=== PATIENT | female | born 1965 | race African-American/Black ===

== ENCOUNTER 2020-05-15 21:22 | Emergency (ER) | payer OTHER ==
[~2020-05-15] VITALS: Ht 170.2 cm; Wt 111.1 kg
[2020-05-15 21:51] LABS: ABSOLUTE NEUTROPHILS 3.3 thou/uL (1.4-8.2); BASOPHILS 1.1 % (0.0-2.0); EOSINOPHILS 2.7 % (0.0-3.0); LYMPHOCYTES 27.9 % (24.0-44.0); MCH 33.2 pg (26.0-34.0); MCHC 34.1 g/dL (28.0-37.0); MCV 97.3 fL (80.0-100.0); PLATELET COUNT 270 thou/uL (150-400); POLYS 57.3 % (36.0-66.0); RBC 4.21 mil/uL (4.20-5.00); RDW 13.6 % (10.5-14.5); WBC 5.8 thou/uL (4.0-11.0)
[2020-05-15] MEDS ORDERED: NAPROSYN500 MG PO (22:13)
[2020-05-15] MEDS ORDERED: ONDANSETRON ODT8 MG PO (22:13)
[2020-05-15] MEDS ORDERED: CLINDAMYCIN HC300 MG PO (22:13)
[2020-05-15 23:02] LABS: ALBUMIN 3.4 g/dL (3.4-5.0); ANION GAP 13 mmol/L (7-16); BUN 16 mg/dL (7-18); CALCIUM 9.3 mg/dL (8.5-10.1); CHLORIDE 102 mmol/L (98-107); CO2 26 mmol/L (21-32); GLUCOSE 98 mg/dL (74-106); LIPASE 93 U/L (73-393); MAGNESIUM 1.9 mg/dL (1.8-2.4); POTASSIUM 3.9 mmol/L (3.5-5.1); SGOT 20 U/L (15-37); SGPT 31 U/L (30-65); SODIUM 141 mmol/L (136-145); TOTAL BILIRUBIN 0.3 mg/dL (0.2-1.0); TOTAL PROTEIN 7.3 g/dL (6.4-8.2); TROPONIN-I <0.06 ng/mL (<0.06)
[2020-05-15 23:38] LABS: URINE BILIRUBIN NEGATIVE (Negative); URINE BLOOD NEGATIVE (Negative); URINE CLARITY CLEAR; URINE COLOR YELLOW; URINE GLUCOSE-RANDOM* NEGATIVE (Negative); URINE KETONES NEGATIVE (Negative); URINE LEUKOCYTES-REFLEX NEGATIVE (Negative); URINE NITRITE-REFLEX NEGATIVE (Negative); URINE PROTEIN (DIPSTICK) NEGATIVE (Negative); URINE SPECIFIC GRAVITY 1.015 (1.005-1.035); URINE UROBILINOGEN 0.2 E.U./dl (0.2-1.0)
[2020-05-15 23:41] VITALS: BP 114/68
[2020-05-15 23:50] LABS: AMP/METHAMP Negative (Negative); BARBITURATES Negative (Negative); BENZODIAZEPINES Negative (Negative); COCAINE Negative (Negative); METHADONE Negative (Negative); OPIATES Negative (Negative); PCP Negative (Negative)
--- NOTE | 2020-05-18 08:36 | EKG ---
[facility] [place] [address] ELECTROCARDIOGRAM REPORT Name: NAKITA LUNSFORD Room #: DEP [facility]#: [id number] Admission: 05/15/20 Attend Phys: Discharge: 05/15/20 Date of : 65 Report #: [id number] THIS REPORT FOR: cc: JOSE CAMPO MD Physician not on staff Ilan Chi MD [facility] ~ THIS REPORT FOR: //name// [facility] ED Test Date: 2020-05-15 Test Time: 21:27:52 Pat Name: NAKITA LUNSFORD Department: Room: Gender: F Evidence Technician: [facility] : 1965 Requested By: Jh Pena Order Number: [id number] MD: Ilan Chi Measurements Intervals [place] Rate: 91 P: 49 [place]: 152 QRS: -19 QRSD: 105 T: 3 QT: 366 QTc: 451 Interpretive Statements Sinus rhythm RSR' in V1 or V2, probably normal variant Borderline T abnormalities, anterior leads No previous ECG available for comparison Electronically Signed On 05-18-2020 8:31:34 CDT by Ilan Chi [email or web address] <ELECTRONICALLY SIGNED> By: Ilan Chi MD, [facility] 05/18/2031 26 26 Ilan Chi MD, [facility] /EPI
== END 2020-05-15 23:44 | disposition home or self-care (01) ==
LOC: ER 21:22
PROVIDERS: Emergency Medicine
DX: R07.89 Other chest pain (principal); R11.2 Nausea with vomiting, unspecified; R42 Dizziness and giddiness; K04.7 Periapical abscess without sinus; E78.00 Pure hypercholesterolemia, unspecified; I10 Essential (primary) hypertension; K21.9 Gastro-esophageal reflux disease without esophagitis; J45.909 Unspecified asthma, uncomplicated

== ENCOUNTER 2020-05-19 18:09 | Emergency (ER) | payer OTHER ==
[~2020-05-19] VITALS: Ht 170.2 cm; Wt 111.1 kg
[~2020-05-19 18:09] MED LIST: CLINDAMYCIN HC300 MG PO; NAPROSYN500 MG PO; ONDANSETRON ODT8 MG PO
[2020-05-19] MEDS ORDERED: PEPCID40 MG PO (20:01)
[2020-05-19] MEDS ORDERED: NEURONTIN 300M300 M2 PO (20:01)
[2020-05-19] MEDS ORDERED: TIZANIDINE HCL4 M1 PO (20:01)
[2020-05-19] MEDS ORDERED: TRIAMTERENE/HCT1 CA1 PO (20:01)
[2020-05-19] MEDS ORDERED: MECLIZINE HCL25 M1 PO (20:02)
[2020-05-19] MEDS ORDERED: ASA81BEC PO (20:02)
[2020-05-19] MEDS ORDERED: TOPROL XL25 MG PO (20:02)
[2020-05-19] MEDS ORDERED: MELOXICAM15 MG PO (20:02)
[2020-05-19] MEDS ORDERED: GLUCOPHAGE500 MG PO (20:03)
[2020-05-19 20:32] VITALS: BP 129/88
== END 2020-05-19 20:35 | disposition left against medical advice (07) ==
LOC: ER 18:09
DX: R11.0 Nausea (principal); R42 Dizziness and giddiness; R00.0 Tachycardia, unspecified; F41.9 Anxiety disorder, unspecified; E78.00 Pure hypercholesterolemia, unspecified; I10 Essential (primary) hypertension; K21.9 Gastro-esophageal reflux disease without esophagitis; J45.909 Unspecified asthma, uncomplicated; F32.9 Major depressive disorder, single episode, unspecified; Z79.2 Long term (current) use of antibiotics; Z79.899 Other long term (current) drug therapy; Z88.0 Allergy status to penicillin

== ENCOUNTER 2021-04-23 06:40 | Inpatient (IN) | payer OTHER ==
[2021-04-23] VITALS (7 sets, daily range): BP systolic 100–133; BP diastolic 65–86
[~2021-04-23] VITALS: Ht 170.2 cm; Wt 128.7 kg
--- NOTE | ~2021-04-23 | EMS ---
[address] [address] EMS Patient Care Report Name: NAKITA LUNSFORD Room #: 349-I ADM IN M.R.#: [id number] Admission: 04/23/21 Attend Phys: Lina Willams MD Discharge: Date of : 65 Report #: [id number] THIS REPORT FOR: //name// Report Transmitted: 04/26/2021 12:06 EMS Care Summary [place], [place]/[facility] Incident [id number] @ 04/23/2021 06:12 Incident Location [address] [place] [address] Patient NAKITA LUNSFORD Female, 55 Years 1965 Patient Address [address] [place] [address] Patient History Asthma, Patient Allergies Penicillin allergy,Bactrim, Chief Complaint SHORT OF BREATH Disposition Transported No Lights/[place] Dispatch Reason Breathing Problem Transported To [facility] Narrative ARRIVED TO FIND PT SITTING ON A COUCH. PT REPORTS TESTING COVID POSITIVE ON MONDAY, NOW FEELING SHORT OF BREATH, AND WEAK. PT ASSISTED TO COT, SECURED WITH STRAPS X2 LOADED WITHOUT INCIDENT. ALS ASSESSMENT VITALS OBTAINED. PT PLACED ON O2. ENROUTE, PT CONDITION UNCHANGED. [address] [address] EMS Patient Care Report Name: NAKITA LUNSFORD Room #: 349-I ADM IN Manuel.#: [id number] Admission: 04/23/21 Attend Phys: Lina Willams MD Discharge: Date of : 65 Report #: [id number] ARRIVED . PT TAKEN INSIDE ON COT TO ER 10. PT STEPS TO BED. REPORT GIVEN TO NURSE PT CARE TRANSFERRED. Initial Vitals @06:26P: 83,R: 30,Pain: 0/10,GCS: 15,SpO2: 90, @06:34P: 91,R: 30,BP: 112/78,Pain: 0/10,GCS: 15,CO: 3,SpO2: 93,Revised Trauma: 11, Assessments @06:20MENTAL:Person Oriented,Event Oriented,Time Oriented,Place Oriented,SKIN:Pale,HEENT:Head/Face: No Abnormalities,Neck/Airway: No Abnormalities,LUNG SOUNDS:General: No Abnormalities,Left Upper: No Abnormalities,Right Upper: No Abnormalities,Left Lower: No Abnormalities,Right Lower: No Abnormalities,ABDOMEN:General: No Abnormalities,Left Upper: No Abnormalities,Right Upper: No Abnormalities,Left Lower: No Abnormalities,Right Lower: No Abnormalities,PELVIS//GI:No Abnormalities,EXTREMITIES:Left Arm: No Abnormalities,Right Arm: No Abnormalities,Left Leg: No Abnormalities,Right Leg: No Abnormalities,PULSE:Radial: Absent,NEURO:No Abnormalities, Impression COVID-19 - Confirmed by testing Procedures @06:20ALS AssessmentResponse: UnchangedSucceeded@06:25Oxygen FlowRate: 6 Device: Nasal Cannula (NC) Response: ImprovedSucceeded Timeline 06:11,Call Received 06:11,Dispatch Notified 06:12,Dispatched 06:13,En Route 06:19,On Scene 06:20,At Patient 06:20,ALS Assessment,Response: UnchangedSucceeded, 06:25,Oxygen FlowRate: 6 Device: Nasal Cannula (NC) Response: ImprovedSucceeded, 06:26,BP: / M,PULSE: 83,RR: 30 R,SPO2: 90 Ox,ETCO2: ,BG: ,PAIN: 0,GCS: 15, 06:26,Depart Scene 06:34,BP: 112/78 M,PULSE: 91,RR: 30 R,SPO2: 93 Ox,ETCO2: ,BG: ,PAIN: 0,GCS: 15, 06:38,At Destination 06:47,Call Closed Disclaimer v1.1 Copyright 2020 [employer] This EMS Care Summary contains data elements from the applicable legal record (which may be displayed differently). It is designed to provide pertinent [facility] [address] [place] [address] EMS Patient Care Report Name: NAKITA LUNSFORD Room #: 349-I [facility]#: [id number] Admission: 04/23/21 Attend Phys: Lina Willams MD Discharge: Date of : 65 Report #: [id number] information for the following purposes: continuity of care, clinical quality, and state data reporting. The complete legal record is available to ED staff and administrators of the receiving hospital in ES's Patient Tracker. All data is provided "as is."
[~2021-04-23 06:40] MED LIST changes: +ASA81BEC PO; +GLUCOPHAGE500 MG PO; +MECLIZINE HCL25 M1 PO; +MELOXICAM15 MG PO; +NEURONTIN 300M300 M2 PO; +PEPCID40 MG PO; +TIZANIDINE HCL4 M1 PO; +TOPROL XL25 MG PO; +TRIAMTERENE/HCT1 CA1 PO
--- NOTE | 2021-04-23 06:52 | NUR ---
REPORTS SHE WILL GET VACCINATED WHEN SHE GETS BETTER
[2021-04-23 07:32] LABS: ABSOLUTE NEUTROPHILS 5.8 thou/uL (1.4-8.2); BASOPHILS 0.2 % (0.0-2.0); HEMOGLOBIN 14.8 gm/dL (12.0-15.0); LYMPHOCYTES 10.9 % (24.0-44.0); MCHC 33.6 g/dL (28.0-37.0); MCV 98.1 fL (80.0-100.0); MONOCYTES 4.9 % (1.0-8.0); PLATELET COUNT 185 thou/uL (150-400); RBC 4.49 mil/uL (4.20-5.00); RDW 13.6 % (10.5-14.5); WBC 6.9 thou/uL (4.0-11.0)
[2021-04-23 07:35] LABS: ANION GAP 11 mmol/L (7-16); BUN 10 mg/dL (7-18); CALCIUM 8.6 mg/dL (8.5-10.1); CHLORIDE 100 mmol/L (98-107); CO2 26 mmol/L (21-32); CREATININE 1.1 mg/dL (0.6-1.0); GLUCOSE 150 mg/dL (74-106); POTASSIUM 3.3 mmol/L (3.5-5.1); SODIUM 137 mmol/L (136-145)
[2021-04-23 07:44] LABS: TROPONIN-I <0.06 ng/mL (<0.06)
--- NOTE | 2021-04-23 09:05 | EKG ---
[address] [place] [address] ELECTROCARDIOGRAM REPORT Name: NAKITA LUNSFORD Room #: 170-10 ADM IN M.R.#: [id number] Admission: 04/23/21 Attend Phys: Lina Willams MD Discharge: Date of : 65 Report #: [id number] [facility] ED Test Date: 2021-04-23 Test Time: 07:25:27 Pat Name: NAKITA LUNSFORD Department: Room: [facility] Gender: F Card Grinder Helper: [place] : 1965 Requested By: Giselle Mendez Order Number: [id number] MD: Ilan Chi Measurements Intervals [place] Rate: 82 P: 54 [place]: 147 QRS: -32 QRSD: 99 T: 7 QT: 344 QTc: 402 Interpretive Statements Sinus rhythm Probable left atrial enlargement RSR' in V1 or V2, probably normal variant Inferior infarct, old Compared to ECG 05/15/2020 21:27:52 T-wave abnormality no longer present Electronically Signed On 04-23-2021 9:05:21 CDT by Ilan Chi [email or web address] <ELECTRONICALLY SIGNED> By: Ilan Chi MD, [facility] 04/23/21904 4 4 Ilan Chi MD, [facility] /EPI
[2021-04-23] MEDS ORDERED: HYDROXYZINE HCL25 M2 PO (10:43)
[2021-04-23] MEDS ORDERED: ESTRACE1 MG PO (10:45)
[2021-04-23] MEDS ORDERED: DRIZALMA SPRINK60 MG PO (10:46)
[2021-04-23] MEDS ORDERED: PROVERA2.5 MG PO (10:47)
[2021-04-23] MEDS ORDERED: ABILIFY10 MG PO (10:48)
[2021-04-23] MEDS ORDERED: PROAIR HFA8.5 GM INH (10:49)
[2021-04-23] MEDS ORDERED: ADVAIR 250-501 EACH INH (10:50)
--- NOTE | 2021-04-23 11:12 | NUR ---
ADMISSION NOTE: PT ADMITTED TO ROOM 349. PT A&O X4. STATES SHE HAS PAIN IN THE BILTAREAL KNEES, RATING 9/10, BUT STATES THAT IT IS CHRONIC. PT ALSO STATES SOME CHEST SORENESS FROM COUGHING, MADE WORSE WITH DEEP BREATHING. LONG LINE TEAMSTER PLACED ON PT, SINUS RHYTHM. ON NRB 10L, SATING AT 97%. ADMISSION & ASSESSMENT COMPLETE. SKIN INTACT. UP WITH STAND BY ASSIST TO BSC. PT ORIENTED TO ROOM. MED REC COMPLETED. PT CAME IN WITH BAG FULL OF MEDICATIONS, STATE THE DAUGHTER WILL COME TO GET IT, ALONG WITH HER PURSE. FALL PRECAUTIONS IN PLACE. CALL LIGHT & TABLE WITHIN REACH. PT DENIES ANY NEEDS AT THIS TIME.
[2021-04-24 01:06] LABS: GLYCOHEMOGLOBIN (HGB A1C) 5.8 % (4.8-5.6)
[2021-04-24 03:15] VITALS: BP 106/72
[2021-04-24 04:06] LABS: HIV ANTIBODY Non Reactive (Non Reactive)
--- NOTE | 2021-04-24 05:06 | NUR ---
Received pt. on 8L/HF with O2 sat in the low 90's. Tachypneic ,resp 28/min. At 2353 , RT titrated O2 up to 10L/HF. At 0315 , desatting in the mid 80's,RT notified. Encouraged use of IS. Pt. got up to commode and O2 sat only staying in the low 80's. RT placed her on Optiflow at 45L/80% at 0350. O2 sat in the upper 90's to 100% so RT titrated O2 down to 40L/60% around 0415. Pt. premedicated with tylenol and benadyl IV prior to giving Tocilizumab IV. Pt. stated she actually slept well and that made her feel good because she has not been able to sleep at home. Cont. on enhanced precaution , afebrile. Up with assist to commode to void. Sputum sample sent to lab.
--- NOTE | 2021-04-24 05:45 | NUR ---
O2 sat of 88-90% on Optiflow 40L / 60%. RT put her on BIPAP around 0530 ( 12/ rate of 12 , 75% FIO2 ). Maintaining O2 sat in the upper 90's on current BIPAP settings. notified of increasing O2 requirement.
[2021-04-24 06:07] LABS: ABSOLUTE NEUTROPHILS 4.1 thou/uL (1.4-8.2); BASOPHILS 0.3 % (0.0-2.0); EOSINOPHILS 0.1 % (0.0-3.0); HEMATOCRIT 40.3 % (37.0-47.0); HEMOGLOBIN 13.5 gm/dL (12.0-15.0); LYMPHOCYTES 9.9 % (24.0-44.0); MCH 32.8 pg (26.0-34.0); MCHC 33.6 g/dL (28.0-37.0); MCV 97.6 fL (80.0-100.0); MONOCYTES 10.2 % (1.0-8.0); PLATELET COUNT 197 thou/uL (150-400); POLYS 79.5 % (36.0-66.0); RBC 4.13 mil/uL (4.20-5.00); RDW 13.9 % (10.5-14.5); WBC 5.1 thou/uL (4.0-11.0)
[2021-04-24 06:28] LABS: INR 1.02; PROTIME 11.1 Seconds (10.5-12.1)
[2021-04-24 06:33] LABS: ALBUMIN 2.4 g/dL (3.4-5.0); CREATININE 0.9 mg/dL (0.6-1.0); PHOSPHORUS 3.6 mg/dL (2.5-4.9); TOTAL BILIRUBIN 0.3 mg/dL (0.2-1.0); TOTAL PROTEIN 6.9 g/dL (6.4-8.2)
[2021-04-24 06:44] LABS: POTASSIUM 4.8 mmol/L (3.5-5.1)
[2021-04-24 07:21] VITALS: BP 114/77
--- NOTE | 2021-04-24 07:23 | NUR ---
Daughter Odyssey updated on pt. condition.
[2021-04-24 11:21] VITALS: BP 122/63
[2021-04-24 15:12] VITALS: BP 123/78
--- NOTE | 2021-04-24 17:47 | HC ---
[facility] [place] [address] CONSULTATION Name: NAKITA LUNSFORD Room #: 349-I ADM IN M.R.#: [id number] Admission: 04/23/21 Attend Phys: Lina Willams MD Discharge: Date of : 65 Report #: [id number] THIS REPORT FOR: cc: AGAPITO LUCAS - Family physician unknown Jh Johnson MD ~ DATE OF SERVICE: 04/23/2021 INFECTIOUS DISEASE CONSULTATION REASON FOR CONSULTATION: I was asked to evaluate concerning COVID-19 pneumonia. HISTORY OF PRESENT ILLNESS: The patient is a 55-year-old, underlying history of asthma and morbid obesity who presents with a 1-week history of increased cough, congestion, myalgias, arthralgias, anorexia, nausea, diarrhea, low-grade fever, chills, progressive shortness of breath, light-colored sputum production without pleuritic chest pain. She works as a teacher in [place], [place]. She is unvaccinated for COVID-19. Brought into the Emergency Room, now on 8 liters of oxygen per nasal cannula. She uses inhalers for her asthma and was on prednisone about 6 months ago. REVIEW OF SYSTEMS: Fourteen-point review of system was negative other than what has been described above. ALLERGIES: PENICILLIN, BACTRIM WITH RASH. MEDICATIONS: As noted on her MAR, which were reviewed. PAST MEDICAL HISTORY: Hyperlipidemia, hypertension, gastroesophageal reflux, asthma, depression, peripheral neuropathy, morbid obesity. FAMILY HISTORY: Cancer. SOCIAL HISTORY: Nonsmoker, no significant alcohol intake. No HIV or tuberculosis exposure. PHYSICAL EXAMINATION: VITAL SIGNS: The patient had a temperature of 100.5 degrees, hemodynamically stable. GENERAL: Alert and cooperative, sitting up in bed, in no distress. She was able to talk on the phone. She had oxygen on per nasal cannula. She was morbidly obese. No palpable adenopathy. SKIN: Without rash or decubitus. HEENT: Eyes without scleral icterus. Mouth without mucositis. NECK: Supple. LUNGS: Basilar crackles. [facility] [address] [place] [address] CONSULTATION Name: NAKITA LUNSFORD Room #: 349-I [facility] IN M.R.#: [id number] Admission: 04/23/21 Attend Phys: Lina Willams MD Discharge: Date of : 65 Report #: [id number] HEART: Regular, without murmur, gallop or rub. ABDOMEN: Soft and nontender with no hepatosplenomegaly or mass appreciated. GENITAL AND RECTAL: Not performed. EXTREMITIES: Without clubbing, cyanosis or edema. NEUROLOGIC: Cranial nerves intact. Strength in the upper and lower extremities within normal limits. PSYCHIATRIC: Mood without anxiety or depression. LABORATORY DATA: Reviewed. Microbiology reviewed. Chest x-ray reviewed. IMPRESSION: 1. A 55-year-old with COVID-19 pneumonia and respiratory failure. 2. Morbid obesity. 3. Underlying asthma. 4. DRUG ALLERGIES TO PENICILLIN AND SULFA. 5. Hypertension. RECOMMENDATIONS: We will continue combination antiviral therapy, corticosteroids and add Actemra. This was discussed with the patient regarding treatment approach. She agreed with the plan. We will continue antibiotics pending culture results. We will obtain serial laboratory studies and chest x-ray. The patient will be treated on the COVID isolation unit. <ELECTRONICALLY SIGNED> By: Jh Johnson MD 04/24/21 1747 [id number] 0425 Jh Johnson MD /nt
--- NOTE | 2021-04-24 18:05 | NUR ---
assumed care of pt at 0700. pt aox4 mod resp distress. on bipap overnight. tolerating optiflow during day - 45L/90%. complains of headache and occasional nausea. good relief with meds. pt doing well turning self in bed - noticable improvement in spo2. calls out appropriately. up to bsc w/ assist. family calling several times, checking on patient status. overall seems to be showing slight improvement. wcm.
[2021-04-24 21:08] VITALS: BP 132/83
--- NOTE | 2021-04-25 00:04 | NUR ---
PT ALERT AND ORIENTED X4. VSS AFEBRILE. SATS DECREASED INTO 80'S WHEN PT CHANGED POITION FROM RIGHT SIDE TO SITTING SEMIFOWLERS. RT NOTIFIED. O2 INCREASEED TO 96% AND 50 LF ON OPTIFLO. PT IS BREATHING IN 30S PRESENTLY. SHE DOES NOT WANT THE BIPAP PRESENTLY. DR FISHER WAS NOTIFIED PER RT OF CHANGE IN O2 NEED. SHE ALSO HAS THE NRB MASK ON. HER SATS ARE 95-96% PRESENTLY. WILL CONTINUE TO MONITOR PT FOR CHANGES. BED DOWN. CALL LIGHT IN REACH.
[2021-04-25 00:12] VITALS: BP 156/83
[2021-04-25 04:55] VITALS: BP 112/77
--- NOTE | 2021-04-25 05:12 | NUR ---
PT CHANGED TO BIPAP PER RT. FIO2 85%. SATS 95-96% ON BIPAP. BS SOUND DIMINISHED WITH FINE CRACKLES NOTED. WILL CONTINUE TO MONITOR PT FOR CHANGES.
[2021-04-25 06:13] LABS: ABSOLUTE NEUTROPHILS 7.2 thou/uL (1.4-8.2); BASOPHILS 0.4 % (0.0-2.0); HEMATOCRIT 44.7 % (37.0-47.0); HEMOGLOBIN 14.9 gm/dL (12.0-15.0); LYMPHOCYTES 7.5 % (24.0-44.0); MCH 33.1 pg (26.0-34.0); MCHC 33.2 g/dL (28.0-37.0); MCV 99.5 fL (80.0-100.0); MONOCYTES 8.9 % (1.0-8.0); PLATELET COUNT 203 thou/uL (150-400); POLYS 83.2 % (36.0-66.0); RDW 13.8 % (10.5-14.5); WBC 8.6 thou/uL (4.0-11.0)
[2021-04-25 07:50] VITALS: BP 120/76
[2021-04-25 11:53] VITALS: BP 112/64
[2021-04-25 12:38] LABS: ANION GAP 7 mmol/L (7-16); BUN 15 mg/dL (7-18); CALCIUM 8.5 mg/dL (8.5-10.1); CHLORIDE 103 mmol/L (98-107); CO2 26 mmol/L (21-32); CREATININE 0.9 mg/dL (0.6-1.0); GLUCOSE 135 mg/dL (74-106); POTASSIUM 5.2 mmol/L (3.5-5.1); SODIUM 136 mmol/L (136-145)
[2021-04-25 12:45] LABS: ALBUMIN 2.5 g/dL (3.4-5.0); DIRECT BILIRUBIN < 0.1 mg/dL (<0.1-0.2); SGOT 98 U/L (15-37); SGPT 80 U/L (14-59); TOTAL BILIRUBIN 0.3 mg/dL (0.2-1.0); TOTAL PROTEIN 6.9 g/dL (6.4-8.2)
--- NOTE | 2021-04-25 13:23 | NUR ---
PT'S DAUGHTER (JUANITA ALLEN) REQUESTED THATPT BE A CONFIDENTIAL PATIENT. SHE STATES TO MAY PEOPLE ARE CALLING FOR INFORMATION ABOUT HER MOTHER AND IT'S BECOMING A PROBLE. SEND MESSAGE TO [employer] REQUESTING PT BE CONFIDENTIAL.
[2021-04-25 15:07] VITALS: BP 124/68
--- NOTE | 2021-04-25 15:26 | NUR ---
PT ABLE TO TOLEARATE AIRVO NASAL CANNULA TO EAT LUNCH NOW BACK ON BIPAP.
[2021-04-25 19:30] VITALS: BP 130/82
--- NOTE | 2021-04-25 21:52 | NUR ---
PT ALERT AND ORIENTED X4. VSS AFEBRILE. RR 30% SATS 93% ON 85% FIO2 BIPAP ON. PT STATED SHE IS FELLING BETTER THAN YESTERDAY. ABX HUNG ORDERED. NO C/O PAIN OR SOA PESENTLY. WILL CONTINUE TO MONITOR PT FOR CHANGES.
--- NOTE | 2021-04-26 01:19 | NUR ---
PT IS RESTING QUIETLY PRESENTLY ON BIPAP.
[2021-04-26 04:30] VITALS: BP 134/87
--- NOTE | 2021-04-26 05:52 | NUR ---
PT PROGRESSING SLOWLY TOWARDS D/C GOALS. VSS SATS 98% ON BIPAP 85% TONIGHT. MIRALAX GIVEN FOR CONSTIPATION. NO AMMY PAIN. NO S/S DISTRESS PRESENTLY.
[2021-04-26 07:12] VITALS: BP 139/87
--- NOTE | 2021-04-26 08:41 | NUR ---
Assess due to high BMI 56.6/extreme class III obesity. Admit with COVID+ pneumonia. Day 3 hospitalization. BG slightly elevated with steroids 123-154, A1C wnl 5.8. Appetite fair, average about 60% of meals. Requires bipap/optiflow. Low nutrition risk at this time
[2021-04-26 11:13] VITALS: BP 123/73
[2021-04-26 15:41] VITALS: BP 152/98
--- NOTE | 2021-04-26 15:43 | NUR ---
INITIAL ASSESSMENT: Received consult. ELZA reviewed chart and spoke with nursing and attending physician. Pt was admitted from home due to COVID pneumonia. Pt placed in Enhanced Isolation. Pt has not received the COVID vaccine. Pt is afebrile and requiring bipap/optiflow support. Pt is on IV abx and IV steroids. Pt has been started on Remdesivir. ELZA left voice message for pt's dtr, Odyssey, to obtain info for CM assessment and assist with discharge planning. Pt is listed as a confidential pt. ELZA is following to assist as needed with discharge planning.
[2021-04-26 16:09] LABS: ALBUMIN 2.7 g/dL (3.4-5.0); ANION GAP 5 mmol/L (7-16); BUN 17 mg/dL (7-18); CALCIUM 7.9 mg/dL (8.5-10.1); CHLORIDE 107 mmol/L (98-107); CO2 29 mmol/L (21-32); CREATININE 0.7 mg/dL (0.6-1.0); DIRECT BILIRUBIN 0.1 mg/dL (<0.1-0.2); GLUCOSE 120 mg/dL (74-106); POTASSIUM 4.7 mmol/L (3.5-5.1); SGOT 80 U/L (15-37); SGPT 114 U/L (30-65); SODIUM 141 mmol/L (136-145); TOTAL BILIRUBIN 0.3 mg/dL (0.2-1.0); TOTAL PROTEIN 6.5 g/dL (6.4-8.2)
[2021-04-26 16:10] LABS: D-DIMER 0.39 ug/mLFEU (0.19-0.50); INR 1.02; PROTIME 11.1 Seconds (10.5-12.1)
[2021-04-26 18:14] LABS: ABSOLUTE NEUTROPHILS 7.7 thou/uL (1.4-8.2); BASOPHILS 0.1 % (0.0-2.0); HEMOGLOBIN 13.1 gm/dL (12.0-15.0); LYMPHOCYTES 5.7 % (24.0-44.0); MCH 32.9 pg (26.0-34.0); MCHC 33.7 g/dL (28.0-37.0); MCV 97.6 fL (80.0-100.0); MONOCYTES 14.3 % (1.0-8.0); POLYS 79.9 % (36.0-66.0); RDW 13.1 % (10.5-14.5); WBC 9.6 thou/uL (4.0-11.0)
[2021-04-26 18:16] LABS: PLATELET COUNT 314 thou/uL (150-400)
--- NOTE | 2021-04-26 18:34 | NUR ---
VAT CONSULTED FOR MIDLINE. PT'S LABS,MEDS,HX,REVIEWED. DISCUSSED BENEFITS AND RISK OF MIDLINE WITH PT, VERBALIZED UNDERSTANDING AND GAVE VERBAL CONSENT. JOSE RAFAEL BRACHIAL WAS WIDELY PATENT WITH USG.4FR ML TRIMMED TO 15CM INSERTED TO 2CM EXTERNAL WITH BRISK BR. PT TOLERATED WELL. ML RELEASED FOR IMMEDIATE USE PER PROTOCOL TO NICOLE HARLEY
[2021-04-26 21:52] VITALS: BP 139/86
--- NOTE | 2021-04-26 23:38 | NUR ---
PT ALERT AND ORIENTED X4. VSS AFEBRILE. NO C/O PAIN. NO SOA NOTED WITH BIPAP ON. IVFS INFUSING WITHOUT DIFFICULTY R ML. BED DOWN. CALL LIGHT IN REACH. WILL CONTINUE TO MONITOR PT FOR CHANGES.
[2021-04-27 04:46] VITALS: BP 148/87
--- NOTE | 2021-04-27 05:16 | NUR ---
PT PROGRESSING TOWARDS D/C GOALS . VSS AFEBRILE. SATS WNL WITH CURRENT BIPAP SETTIGS. NO C/O PAIN OR S/S DISTRESS.
[2021-04-27 05:58] LABS: ABSOLUTE NEUTROPHILS 7.6 thou/uL (1.4-8.2); BASOPHILS 0.2 % (0.0-2.0); HEMATOCRIT 40.3 % (37.0-47.0); HEMOGLOBIN 13.5 gm/dL (12.0-15.0); MCH 32.7 pg (26.0-34.0); MCHC 33.6 g/dL (28.0-37.0); MCV 97.5 fL (80.0-100.0); MONOCYTES 9.1 % (1.0-8.0); PLATELET COUNT 321 thou/uL (150-400); POLYS 84.7 % (36.0-66.0); RBC 4.14 mil/uL (4.20-5.00); RDW 13.1 % (10.5-14.5)
[2021-04-27 06:00] LABS: ALBUMIN 2.5 g/dL (3.4-5.0); CALCIUM 7.6 mg/dL (8.5-10.1); CREATININE 0.9 mg/dL (0.6-1.0); MAGNESIUM 2.4 mg/dL (1.8-2.4); PHOSPHORUS 2.5 mg/dL (2.5-4.9); POTASSIUM 4.6 mmol/L (3.5-5.1); TOTAL BILIRUBIN 0.3 mg/dL (0.2-1.0); TOTAL PROTEIN 6.3 g/dL (6.4-8.2)
[2021-04-27 07:49] VITALS: BP 144/79
[2021-04-27 11:21] VITALS: BP 134/79
--- NOTE | 2021-04-27 12:09 | NUR ---
ELZA reviewed chart and spoke with nursing and attending physician. Pt remains in Enhanced Isolation due to COVID. Pt is afebrile and requiring optiflow/bipap support. Pt is on IV steroids and Remdesivir. ELZA spoke with pt's dtr, Ja, via phone. Introduced role of ELZA. Pt lives at home with Ja, who has also tested positive for COVID. Prior to admission, pt was independent with ADLs. Pt does have a cane. Pt with hx of asthma and has an inhaler and nebulizer at home. There are 4-5 steps from the ground level up to the second level fo their home, where the main bathroom is located. Pt's PCP is at the [facility]. No hx of HH or post-acute placement. PT/OT to be ordered when pt is able to participate. ELZA is following to assist as needed with discharge planning.
[2021-04-27 16:50] VITALS: BP 142/87
--- NOTE | 2021-04-28 05:27 | NUR ---
FATIGUE AND WEAKNESS STILL COMPLAINTS FROM PT. 02 SATURATIONS HOVER FROM MID 80'S-LOW 90'S, AND PT STATES SHE DOES NOT WANT TO GO ON BIPAP AGAIN. CONVINCED HER TO USE REBREATHER WITH OPTIFLOW TO GET SATURATIONS UP. SPOKE WITH RT REGARDING SATURATIONS. POC WITH IVF. PT UP TO BSC. REDRESSED MIDLINE PT REQUESTED IT DUE TO BLOOD UNDER TRANSPARENT.
[2021-04-28 06:03] VITALS: BP 144/83
[2021-04-28 07:05] VITALS: BP 145/80
--- NOTE | 2021-04-28 14:30 | NUR ---
SW reviewed chart and spoke with nursing and attending physician. Pt remains in Enhanced Isolation due to COVID. Pt is afebrile and requiring optiflow. Pt is hoping to not having to be placed back on bipap. Pt is on IV steroids and Remdesivir. Therapy evals to be ordered when pt is able to participate. SW is following to assist as needed with discharge planning.
[2021-04-28 15:05] VITALS: BP 132/77
[2021-04-28 19:20] VITALS: BP 147/91
--- NOTE | 2021-04-28 19:32 | NUR ---
day shift review: pt A&Ox4. states she is feeling better, has concerns for her daughter, also COVID+. this rn encouraged pt to rest when able during the day. pt has tendency to mouth breathe, causing slight decline in oxygenation saturation. pt easily recovers when closing mouth. no other complaints or concerns by end of shift.
[2021-04-29 03:45] VITALS: BP 148/88
[2021-04-29 05:38] LABS: ALBUMIN 2.5 g/dL (3.4-5.0); CALCIUM 7.9 mg/dL (8.5-10.1); CREATININE 0.9 mg/dL (0.6-1.0); DIRECT BILIRUBIN 0.1 mg/dL (<0.1-0.2); POTASSIUM 4.7 mmol/L (3.5-5.1); TOTAL BILIRUBIN 0.4 mg/dL (0.2-1.0)
[2021-04-29 07:19] VITALS: BP 123/74
--- NOTE | 2021-04-29 07:43 | NUR ---
PT 02 SATS UP AND DOWN IN THE MID 80'S. PT WAS PLACED ON BIPAP FOR ABOUT 3 HOURS THEN WANTED TO COME OF AND GO BACK TO THE OPTIFLOW. PT STILL WEAK AND FEELING FATIGUED. VSS STABLE OVERNIGHT WITHOUT ANY FEVER.
--- NOTE | 2021-04-29 14:28 | NUR ---
ELZA reviewed chart and spoke with nursing and attending physician. Pt remains in Enhanced Isolation due to COVID. Pt is afebrile and requiring optiflow. Pt was placed on bipap overnight for about 3 hours. Pt is on IV steroids and Remdesivir. ELZA spoke with pt's dtr, Ja, via phone to provide update. Ja states that she did speak with a physician earlier today for an update. Ja also has COVID and is recovering at home. ELZA explained that therapy evals will be ordered when pt is able to participate. Pt's dtr verbalized understanding. Pt's dtr has SW and 3W nurses station contact info. ELZA is following to assist as needed with discharge planning.
[2021-04-29 16:15] VITALS: BP 158/83
--- NOTE | 2021-04-29 17:26 | NUR ---
PT C/O OF SOME CHEST PAIN THIS EVENING. OBTAIN ORDER FOR GI COCKTAIL AND GAVE ZOFRAN WHICH RELIEVED CHEST DISCOMFORT. PT REMAINS ON HIFLO OXYGEN AND BIPAP. WILL CONTINUE TO ASSESS.
[2021-04-29 20:04] VITALS: BP 127/82
[2021-04-30 04:56] VITALS: BP 136/79
[2021-04-30 05:47] LABS: ABSOLUTE NEUTROPHILS 9.5 thou/uL (1.4-8.2); BASOPHILS 0.2 % (0.0-2.0); HEMATOCRIT 40.9 % (37.0-47.0); HEMOGLOBIN 13.9 gm/dL (12.0-15.0); LYMPHOCYTES 5.2 % (24.0-44.0); MCHC 33.9 g/dL (28.0-37.0); MCV 97.3 fL (80.0-100.0); MONOCYTES 6.9 % (1.0-8.0); PLATELET COUNT 326 thou/uL (150-400); POLYS 87.7 % (36.0-66.0); RDW 13.3 % (10.5-14.5); WBC 10.8 thou/uL (4.0-11.0)
[2021-04-30 06:25] LABS: ALBUMIN 2.5 g/dL (3.4-5.0); CALCIUM 7.8 mg/dL (8.5-10.1); CREATININE 0.9 mg/dL (0.6-1.0); DIRECT BILIRUBIN 0.1 mg/dL (<0.1-0.2); POTASSIUM 4.5 mmol/L (3.5-5.1); TOTAL BILIRUBIN 0.5 mg/dL (0.2-1.0); TOTAL PROTEIN 5.9 g/dL (6.4-8.2)
[2021-04-30 07:13] VITALS: BP 139/90
--- NOTE | 2021-04-30 07:35 | NUR ---
KEEPING OXYGEN SATURATION UP WAS A PISANO. PT FINALLY AGREED TO GO ON BIPAP AT 0400 DUE TO SATS SHOWING LOW 80'S. PT HAS GOOD URINE OUTPUT. PT ATTEMPTED TO PRONE FOR A SHORT TIME BUT RIPPED THE OPTIFLOW HOSE IN HALF. REPLACED WITH NEW CANNULA. TYLENOL GIVEN FOR HEADACHE X2. ISOLATION PRECAUTIONS IN PLACE.
[2021-04-30 09:26] LABS: T-SPOT.TB Negative
[2021-04-30 11:35] VITALS: BP 138/76
--- NOTE | 2021-04-30 15:06 | NUR ---
SW reviewed chart and spoke with nursing and attending physician. Pt remains in Enhanced Isolation due to COVID. Pt is afebrile and requiring optiflow and bipap support. Pt is on IV steroids and Remdesivir. Pt may need to transfer to ICU. No weekend discharge anticipated. ELZA is following to assist as needed with discharge planning.
[2021-04-30 19:10] VITALS: BP 148/90
--- NOTE | 2021-04-30 19:34 | NUR ---
RN ASSUMED PT'S CARE AT 0700-1900PM, PT IS A&OX4, PT IS CONTININING TO TREAT COVID MEDICATIONS , PT IS CONTINUING BIPAP WITH O2 100% TO KEEP O2SAT AT 92-100%, PT 'S O2SAT WILL REDUCE <90% WHEN SHE IS EATING , PT DENIES PAIN AT DAY SHIFT, RN HAS REPORTED TO NEXT SHIFT TO KEEP EYE ON PT.
[2021-05-01] VITALS (157 sets, daily range): BP systolic 78–217; BP diastolic 40–150
--- NOTE | 2021-05-01 01:45 | NUR ---
PT ARRIVED TO ICU FROM [facility] IN RESP DISTRESS. ED PHYSICIAN (DR. HOOK) AT BEDSIDE FOR EMERGENT INTUBATION. PT SPOKE WITH FAMILY VIA PERSONAL CELLPHONE TO UPDATE THEM ON HER CURRENT CONDITION AND INTUBATION PLANS. ASSESSMENT COMPLETED. ALL SUPPLIES, MEDICATION AND EQUIPMENT AT BEDSIDE FOR INTUBATION. PT IN ENHANCED PRECAUTIONS FOR COVID ISOLATION.
[2021-05-01 01:52] LABS: BE(vivo) 1.4 mmol/L (-2 to +3); HCO3 26.4 mmol/L (22.0-26.0); PCO2 42.9 mmHg (35.0-45.0); PO2 53.6 mmHg (80.0-100.0); pH 7.407 (7.360-7.450)
--- NOTE | 2021-05-01 02:00 | NUR ---
Received pt. on BIPAP 08/03 rate of 12 with O2 sat in the low 90's. She desats very easily and tachypneic. Around [place] assessment O2 sat in the low 80's then dropping in the 70's. Dr. Hernández notified and updated on pt. condition. Order to transfer to ICU. Nsg front office supervisor and WELDER SETTER RESISTANCE MACHINE notified. RT changed BIPAP setting to AVAP mode per order. O2 sat improved a little with O2 sat in the mid 80's then low 90's but dropped back down in the mid 80's. Pt. tansferred to ICU with all her belongings. Daughter Ja notified.
--- NOTE | 2021-05-01 02:45 | NUR ---
PT INTUBATED AT THIS TIME. PROPOFOL INITIATED AND TITRATED TO MAINTAIN ADEQUATE RASS. OXYGEN SATURATIONS 70S-80S POST INTUBATION. R.T. AT BEDSIDE. ABG ORDERED 1 HOUR POST INTUBATION.
--- NOTE | 2021-05-01 02:45 | NUR ---
RESTRAINTS PLACED PER ORDER AT THIS TIME. CARE PLAN UPDATED.
--- NOTE | 2021-05-01 03:00 | NUR ---
LEWIS CATH PLACED AT THIS TIME
[2021-05-01 04:03] LABS: BE(vivo) -0.3 mmol/L (-2 to +3); HCO3 26.6 mmol/L (22.0-26.0); PCO2 52.6 mmHg (35.0-45.0); PO2 73.2 mmHg (80.0-100.0); pH 7.322 (7.360-7.450); sO2 93.4 % (92.0-98.0)
[2021-05-01 04:40] LABS: ABSOLUTE NEUTROPHILS 10.3 thou/uL (1.4-8.2); BASOPHILS 0.1 % (0.0-2.0); HEMATOCRIT 40.8 % (37.0-47.0); HEMOGLOBIN 13.8 gm/dL (12.0-15.0); LYMPHOCYTES 3.9 % (24.0-44.0); MCH 32.9 pg (26.0-34.0); MCHC 33.8 g/dL (28.0-37.0); MCV 97.4 fL (80.0-100.0); MONOCYTES 4.2 % (1.0-8.0); PLATELET COUNT 321 thou/uL (150-400); POLYS 91.8 % (36.0-66.0); RBC 4.19 mil/uL (4.20-5.00); RDW 13.6 % (10.5-14.5); WBC 11.2 thou/uL (4.0-11.0)
[2021-05-01 04:53] LABS: ALBUMIN 2.6 g/dL (3.4-5.0); CALCIUM 7.7 mg/dL (8.5-10.1); CREATININE 0.9 mg/dL (0.6-1.0); DIRECT BILIRUBIN 0.2 mg/dL (<0.1-0.2); POTASSIUM 4.1 mmol/L (3.5-5.1); TOTAL BILIRUBIN 0.7 mg/dL (0.2-1.0); TOTAL PROTEIN 6.1 g/dL (6.4-8.2)
--- NOTE | 2021-05-01 05:30 | NUR ---
VERSED GTT INITIATED PER ORDER. OXYGEN SATURATIONS CONT HIGH 70S, LOW 80S. NO SECRETIONS WHEN SUCTIONED. TITRATING VERSED TO OBTAIN ADEQUATE RASS.
--- NOTE | 2021-05-01 06:10 | NUR ---
OXYGEN SATURATION CONT 70S-80S. DR COLMENARES NOTIFIED. ORDERS REC'D TO OBTAIN ABG, CXR AND CHANGE VENT SETTING TO PRESSURE CONTROL. WILL CONTINUE TO MONITOR
--- NOTE | 2021-05-01 07:10 | NUR ---
R.T. AT BEDSIDE. VENT CHANGED TO PC. CURRENT OXYGEN SATURATIONS 93%. PROPOFOL INFUSING AT 80MCG AND VERSED INFUSING AT 5MG. FI02 100%.
--- NOTE | 2021-05-01 07:40 | NUR ---
REPORT GIVEN TO ONCOMING RN.
--- NOTE | 2021-05-01 17:12 | NUR ---
CL PLACED IN ICU FOR COVID+
--- NOTE | 2021-05-01 18:00 | NUR ---
report received from previous rn at 1130. care assumed. central line telephone consent obtained from daughter. central line placed with placement confirmed, then able to administer delayed antibiotics and remdesivir related to lack of iv access. tolerating vent with pc-32, ba35-226% with versed, fentanyl and decreasing propofol. slowly progressing.
[2021-05-02] VITALS (47 sets, daily range): BP systolic 85–178; BP diastolic 50–100
[2021-05-02 05:21] LABS: BE(vivo) -1.1 mmol/L (-2 to +3); HCO3 24.6 mmol/L (22.0-26.0); PCO2 44.8 mmHg (35.0-45.0); PO2 68.7 mmHg (80.0-100.0); pH 7.357 (7.360-7.450)
[2021-05-02 05:58] LABS: HEMATOCRIT 36.3 % (37.0-47.0); HEMOGLOBIN 12.4 gm/dL (12.0-15.0); MCH 33.6 pg (26.0-34.0); MCHC 34.2 g/dL (28.0-37.0); MCV 98.3 fL (80.0-100.0); RBC 3.7 mil/uL (4.20-5.00); RDW 13.5 % (10.5-14.5); WBC 10.2 thou/uL (4.0-11.0)
[2021-05-02 06:23] LABS: ALBUMIN 2.2 g/dL (3.4-5.0); CALCIUM 7.1 mg/dL (8.5-10.1); CREATININE 0.7 mg/dL (0.6-1.0); DIRECT BILIRUBIN 0.2 mg/dL (<0.1-0.2); POTASSIUM 3.5 mmol/L (3.5-5.1); TOTAL BILIRUBIN 0.4 mg/dL (0.2-1.0); TOTAL PROTEIN 5.1 g/dL (6.4-8.2)
--- NOTE | 2021-05-02 15:54 | NUR ---
ASSUMED CARE OF PATIENT AT 0600. VENTILATOR SETTING ARE 24/ PRESSURE 32/ .100 +12. THESE SETTINGS DIDN'T CHANGE DURING THE SHIFT AND THE PATIENT MAINTAINED A SATURATION OF 91/92% AND SHOWING NO SIGNS OF DISTRESS.
--- NOTE | 2021-05-02 16:33 | NUR ---
PT IS NOT PROGRESSING TOWARDS GOALS AND DISCHARGE AT THIS TIME EVIDENCED BY INADEQUATE SAO2 LEVEL DESPITE VENTILATOR ON 100% FIO2. HEMATURIA NOTED AT 1620 IN THE [place], CHANGED FROM LIGHT YELLOW, URINE OUTPUT REMAINS ADEQUATE. IRREGULAR/LABORED BREATHING PATTERN THROUGHTOUT THE SHIFT. 250CC BILE OG DRAINAGE DURING THIS SHIFT. LEVOPHED REMAINS LOW AT 2. NO FAMILY HAS ATTEMPTED TO CONTACT DURING THIS SHIFT.
[2021-05-03] VITALS (47 sets, daily range): BP systolic 89–143; BP diastolic 47–78
[2021-05-03 05:10] LABS: BE(vivo) -3.7 mmol/L (-2 to +3); HCO3 24.9 mmol/L (22.0-26.0); PCO2 61.9 mmHg (35.0-45.0); PO2 80.6 mmHg (80.0-100.0); sO2 93.4 % (92.0-98.0)
[2021-05-03 05:11] LABS: pH 7.223 (7.360-7.450)
[2021-05-03 05:59] LABS: HEMATOCRIT 36.3 % (37.0-47.0); HEMOGLOBIN 11.8 gm/dL (12.0-15.0); MCH 32.4 pg (26.0-34.0); MCHC 32.6 g/dL (28.0-37.0); MCV 99.2 fL (80.0-100.0); RBC 3.66 mil/uL (4.20-5.00); WBC 15.9 thou/uL (4.0-11.0)
[2021-05-03 06:09] LABS: CALCIUM 7.4 mg/dL (8.5-10.1); CREATININE 0.8 mg/dL (0.6-1.0); POTASSIUM 4.3 mmol/L (3.5-5.1)
--- NOTE | 2021-05-03 10:33 | NUR ---
change of status, pt now intubated
--- NOTE | 2021-05-03 15:29 | NUR ---
SW reviewed chart and spoke with nursing and attending physician. Pt was transferred to ICU from 3 over the weekend. Pt remains in Enhanced Isolation due to COVID. Pt is afebrile and requiring ventilator support. Pt is on IV abx, IV steroids and IV lasix. Tube feeding started today via OG tube. Nursing has spoken with pt's dtr, Odyssey, today for update. SW is following to assist as needed.
--- NOTE | 2021-05-03 18:25 | NUR ---
ASSUMED CARE OF PATIENT AT 0700 THIS MORNING. PT DEEPLY SEDATED, RESTING COMFORTABLY COMPARED TO PREVIOUS DAY. PATIENT APPEARS TO BE TOLERATING VENTILATOR MUCH BETTER, PULSE OX IS IN HIGH 90'S, HEART RATE IS NSR IN 80'S. PATIENT RESTRAINTS WERE REMOVED PRIOR TO SHIFT, NO ISSUES SINCE REMOVAL. TRINIDAD HUGGER PLACED LAST NIGHT TO HELP MAINTAIN PT BODY TEMP WHICH HAS BEEN NORMAL TODAY AND MONITORED THROUGH RECTAL TEMP PROB. NO WOUNDS APPEAR TO BE PRESENT AT THIS TIME, CLRT IS ON IN THE BED WITH HEELS OFF LOADED. PRONATINATION IS NOT ADVISED AT THIS TIME DUE TO HIGH FIO2 AND HIGH VENTILATOR SETTINGS, VENT SETTINGS FIO2 100, PEEP 14 PC 32 RATE 24. PATIENT GIVEN LAXATIVES IN HOPES OF PRODUCING BM, LAST BM ON RECORD 04/30. TUBE FEEDING CHANGED TO VITAL HP AT A RATE OF 20ML/HR. PT IS STILL TOO ILL TO BE PROGRESSING TOWARDS DISCHARGE AT THIS TIME.
[2021-05-04] VITALS (25 sets, daily range): BP systolic 106–141; BP diastolic 51–72
[2021-05-04 05:18] LABS: HEMATOCRIT 34.9 % (37.0-47.0); HEMOGLOBIN 11.4 gm/dL (12.0-15.0); MCH 32.7 pg (26.0-34.0); MCHC 32.8 g/dL (28.0-37.0); MCV 99.6 fL (80.0-100.0); PLATELET COUNT 239 thou/uL (150-400); RDW 13.8 % (10.5-14.5); WBC 19.1 thou/uL (4.0-11.0)
[2021-05-04 05:53] LABS: ALBUMIN 2.2 g/dL (3.4-5.0); CALCIUM 7.5 mg/dL (8.5-10.1); CREATININE 0.7 mg/dL (0.6-1.0); POTASSIUM 4.2 mmol/L (3.5-5.1); TOTAL BILIRUBIN 0.4 mg/dL (0.2-1.0); TOTAL PROTEIN 5.3 g/dL (6.4-8.2)
[2021-05-04 10:29] LABS: ABSOLUTE NEUTROPHILS 18.1 thou/uL (1.4-8.2); NUCLEATED RBCS 1 /100WBC
[2021-05-04 10:31] LABS: ANISOCYTOSIS SLIGHT
--- NOTE | 2021-05-04 10:55 | NUR ---
SPOKE WITH PT'S DAUGHTER CON THIS MORNING AROUND 1030 BRIEFLY. INFORMED THE DAUGHTER THAT THE PATIENT STATUS HAS NOT CHANGED MUCH AND WE ARE CONTINUING TO TAKE VERY SMALL STEPS IN THE RIGHT DIRECTION. INFORMED HER THAT WE ARE TRYING WEAN PATIENT FROM VENTILATOR DECREASED FIO2 FROM 100 TO 70, AND HAVE DECREASED SEDATION IN TINY AMOUNTS WELL AND THAT PATIENT IS TOLERATING CHANGES WELL SO FAR.
--- NOTE | 2021-05-04 18:32 | NUR ---
ASSUMED CARE OF PATIENT AT [id number], PATIENT TOLERATING SEDATION AND VENTILATOR WELL TODAY. WE HAVE TITRATED HER PROPOFOL, LEVOPHED, AND FENTANYL BACK FROM THE PREVIOUS DAY WITH GOOD RESULTS, PATIENT IS TOLERATING THEM WELL AT THIS POINT IN TIME. PATIENT APPEARS TO BE MAKING SMALL PROGRESS TOWARDS D/C.
[2021-05-05] VITALS (43 sets, daily range): BP systolic 84–154; BP diastolic 50–96
--- NOTE | 2021-05-05 12:20 | NUR ---
returned call to Francesca Davis- tiffany. updated on pt status with fi02 decreased to 60%. pt remaining asleep on the vent (medically induced) to allow her lungs to rest and fight the covid.
[2021-05-06] VITALS (67 sets, daily range): BP systolic 97–145; BP diastolic 58–89
[2021-05-06 05:36] LABS: ABSOLUTE NEUTROPHILS 13.1 thou/uL (1.4-8.2); BASOPHILS 0.6 % (0.0-2.0); EOSINOPHILS 0.1 % (0.0-3.0); HEMOGLOBIN 11.9 gm/dL (12.0-15.0); LYMPHOCYTES 2.2 % (24.0-44.0); MCH 32.9 pg (26.0-34.0); MCHC 33.1 g/dL (28.0-37.0); MCV 99.3 fL (80.0-100.0); MONOCYTES 2.5 % (1.0-8.0); POLYS 94.6 % (36.0-66.0); RBC 3.62 mil/uL (4.20-5.00); RDW 13.8 % (10.5-14.5); WBC 13.9 thou/uL (4.0-11.0)
[2021-05-06 05:56] LABS: D-DIMER 0.47 ug/mLFEU (0.19-0.50); INR 1.07; PROTIME 11.6 Seconds (10.5-12.1)
[2021-05-06 05:58] LABS: PLATELET COUNT 159 thou/uL (150-400)
[2021-05-06 06:07] LABS: ALBUMIN 2.4 g/dL (3.4-5.0); ANION GAP 4 mmol/L (7-16); BUN 18 mg/dL (7-18); CALCIUM 8.3 mg/dL (8.5-10.1); CHLORIDE 105 mmol/L (98-107); CO2 33 mmol/L (21-32); CREATININE 0.7 mg/dL (0.6-1.0); GLUCOSE 191 mg/dL (74-106); SGOT 52 U/L (15-37); SGPT 132 U/L (30-65); SODIUM 142 mmol/L (136-145); TOTAL BILIRUBIN 0.4 mg/dL (0.2-1.0); TOTAL PROTEIN 5.6 g/dL (6.4-8.2)
[2021-05-06 09:22] LABS: BE(vivo) 6.1 mmol/L (-2 to +3); HCO3 34.2 mmol/L (22.0-26.0); PO2 77.4 mmHg (80.0-100.0); sO2 94.1 % (92.0-98.0)
[2021-05-06 09:23] LABS: PCO2 67.2 mmHg (35.0-45.0); pH 7.324 (7.360-7.450)
--- NOTE | 2021-05-06 20:21 | NUR ---
PATIENT'S DAUGHTERS, JUANITA AND CON, CALLED FROM [phone] AND THEY WERE UPDATED AND EDUCATED ON THE PATIENT'S CONDITION AND PLAN OF CARE. PATIENT SLOWLY PROGRESSING TOWARDS THE PLAN OF CARE HOWEVER STILL HAS HIGH OXYGEN/SEDATION REQUIREMENTS.
[2021-05-07] VITALS (48 sets, daily range): BP systolic 91–148; BP diastolic 54–93
--- NOTE | 2021-05-07 15:07 | NUR ---
Chart review, discussed during am unite rounds and los. +COVID, remains on vent with nutritional support. Spoke with tiffany campoverde via phone call, no concerns voiced. will cont. following as needed for dc needs.
[2021-05-08] VITALS (47 sets, daily range): BP systolic 93–144; BP diastolic 56–91
[2021-05-08 06:48] LABS: HEMATOCRIT 31.3 % (37.0-47.0); HEMOGLOBIN 10.5 gm/dL (12.0-15.0); MCH 32.9 pg (26.0-34.0); MCHC 33.4 g/dL (28.0-37.0); MCV 98.5 fL (80.0-100.0); PLATELET COUNT 108 thou/uL (150-400); RBC 3.18 mil/uL (4.20-5.00); RDW 13.9 % (10.5-14.5); WBC 9.9 thou/uL (4.0-11.0)
[2021-05-08 07:13] LABS: ALBUMIN 2.3 g/dL (3.4-5.0); CALCIUM 7.7 mg/dL (8.5-10.1); CREATININE 0.6 mg/dL (0.6-1.0); TOTAL BILIRUBIN 0.3 mg/dL (0.2-1.0); TOTAL PROTEIN 5.1 g/dL (6.4-8.2)
[2021-05-08 08:39] LABS: ABSOLUTE NEUTROPHILS 8.9 thou/uL (1.4-8.2); ATYPICAL LYMPHS 1 %; METAMYELOCYTES 1 %; MYELOCYTES 1 %
--- NOTE | 2021-05-08 11:34 | NUR ---
ASSUMED CARE OF PT AT 0700 DR. DONNELLY AT BEDSIDE AT 0930, NO NEW ORDERS GIVEN, HE IS GOING TO CALL THE FAMILY AND UPDATE THEM ON CURRENT SITUATION.
[2021-05-09] VITALS (31 sets, daily range): BP systolic 94–141; BP diastolic 54–88
[2021-05-09 06:45] LABS: ABSOLUTE NEUTROPHILS 8.4 thou/uL (1.4-8.2); BASOPHILS 0.3 % (0.0-2.0); EOSINOPHILS 0.1 % (0.0-3.0); HEMATOCRIT 32.1 % (37.0-47.0); HEMOGLOBIN 10.7 gm/dL (12.0-15.0); LYMPHOCYTES 6.5 % (24.0-44.0); MCH 33.2 pg (26.0-34.0); MCHC 33.2 g/dL (28.0-37.0); MCV 99.8 fL (80.0-100.0); MONOCYTES 5.7 % (1.0-8.0); PLATELET COUNT 118 thou/uL (150-400); POLYS 87.4 % (36.0-66.0); RBC 3.22 mil/uL (4.20-5.00); RDW 14.3 % (10.5-14.5); WBC 9.6 thou/uL (4.0-11.0)
[2021-05-09 06:55] LABS: ALBUMIN 2.4 g/dL (3.4-5.0); CREATININE 0.6 mg/dL (0.6-1.0); POTASSIUM 4.5 mmol/L (3.5-5.1); TOTAL BILIRUBIN 0.3 mg/dL (0.2-1.0); TOTAL PROTEIN 5.3 g/dL (6.4-8.2)
[2021-05-09 13:11] LABS: BE(vivo) 17.6 mmol/L (-2 to +3); HCO3 44.6 mmol/L (22.0-26.0); PO2 56.9 mmHg (80.0-100.0); pH 7.454 (7.360-7.450); sO2 89.9 % (92.0-98.0)
[2021-05-09 13:12] LABS: PCO2 65.1 mmHg (35.0-45.0)
--- NOTE | 2021-05-09 18:51 | NUR ---
ASSUMED CARE OF PT AT 0700 PT BECAME EXTREMELY TACHY INTO THE 150'S, DR. DONNELLY AWARE AND AT BEDSIDE SHORTLY AFTER IT BEGAN AND HE EXAMINED THE PT AND SAID HE WOULD LOOK INTO IT. PT HR CAME DOWN TO THE ONE TEEN'S THEN AN HOUR LATER WAS BACK INTO THE 150'S AND DR. FISHER GAVE ORDERS FOR MEDS. PT IS NOT MEETING GOALS, STILL NEEDING A LOT OF SUPPORT AND ABG DIDN'T LOOK GOOD.
[2021-05-10] VITALS (49 sets, daily range): BP systolic 88–130; BP diastolic 52–83
[2021-05-10 04:00] LABS: HCO3 41.3 mmol/L (22.0-26.0); PO2 71.3 mmHg (80.0-100.0); pH 7.401 (7.360-7.450); sO2 93.7 % (92.0-98.0)
[2021-05-10 04:01] LABS: PCO2 68.1 mmHg (35.0-45.0)
[2021-05-10 04:39] LABS: HEMATOCRIT 30.1 % (37.0-47.0); MCH 33.4 pg (26.0-34.0); MCHC 33.1 g/dL (28.0-37.0); MCV 100.9 fL (80.0-100.0); RBC 2.98 mil/uL (4.20-5.00); RDW 14.4 % (10.5-14.5); WBC 9.8 thou/uL (4.0-11.0)
[2021-05-10 04:50] LABS: ANION GAP < 0 mmol/L (7-16); BUN 24 mg/dL (7-18); CALCIUM 7.7 mg/dL (8.5-10.1); CHLORIDE 103 mmol/L (98-107); CO2 40 mmol/L (21-32); CREATININE 0.6 mg/dL (0.6-1.0); GLUCOSE 131 mg/dL (74-106); MAGNESIUM 2.5 mg/dL (1.8-2.4); POTASSIUM 4.9 mmol/L (3.5-5.1); SODIUM 142 mmol/L (136-145)
--- NOTE | 2021-05-10 06:22 | NUR ---
Pt remains in critical conditions. She remains on vent. Not tolerating to come down on vent due to aschynchonic with ventilator. Increase fentanyl and versed gtt with good result. All lines and tubes are inplaced. She is tolerate TF well. Continue to monitor any changes.
--- NOTE | 2021-05-10 14:16 | NUR ---
Chart review, discussed during am unite rounds and los with hospitalist, possible will require trach and peg? COVID +. Bedside nurse cont. update daughters. Vent. Nutritional support. Will cont. following as needed for dc needs.
--- NOTE | 2021-05-10 17:48 | NUR ---
ATTEMPTED TO TITRATE PATIENT DOWN ON BOTH VENTILATOR AND SEDATION MEDICATIONS TODAY W/ GOAL OF GETTING PATIENT LESS VENT AND SEDATION DEPENDENT, BOTH TIMES PATIENT DID NOT TOLERATE DECREASES IN EITHER VENT FIO2 PERCENTAGES SHE WOULD DESAT. DISCUSSION THIS MORNING WITH HEALTHCARE TEAM IN REGARDS TO TRYING TO LOWER FIO2 IN ODER FOR PATIENT TO SAFELY HAVE TRACH AND PEG TUBE PLACEMENT. PT NOT PROGESSING TOWARDS DISCHARGE AT THIS TIME.
[2021-05-11] VITALS (50 sets, daily range): BP systolic 86–162; BP diastolic 44–91
[2021-05-11 04:50] LABS: HEMATOCRIT 29.4 % (37.0-47.0); HEMOGLOBIN 9.7 gm/dL (12.0-15.0); MCH 33.6 pg (26.0-34.0); MCV 101.6 fL (80.0-100.0); RBC 2.9 mil/uL (4.20-5.00); RDW 14.5 % (10.5-14.5); WBC 8.7 thou/uL (4.0-11.0)
[2021-05-11 05:03] LABS: BE(vivo) 16.3 mmol/L (-2 to +3); HCO3 44.7 mmol/L (22.0-26.0); PO2 92.2 mmHg (80.0-100.0); pH 7.372 (7.360-7.450); sO2 96.4 % (92.0-98.0)
[2021-05-11 05:04] LABS: PCO2 78.8 mmHg (35.0-45.0)
[2021-05-11 05:52] LABS: ANION GAP < 0 mmol/L (7-16); BUN 20 mg/dL (7-18); CALCIUM 7.8 mg/dL (8.5-10.1); CHLORIDE 101 mmol/L (98-107); CO2 40 mmol/L (21-32); CREATININE 0.4 mg/dL (0.6-1.0); GLUCOSE 106 mg/dL (74-106); SODIUM 140 mmol/L (136-145)
--- NOTE | 2021-05-11 14:48 | NUR ---
PT IS NOT PROGRESSING TOWARDS DISCHARGE AT THIS TIME, WAS GIVEN ORDERS TO BEGIN PRONING TODAY, TIMED WITH RT AND OTHER STAFF MEMBERS TO DO IT AT 1400, WHEN EVERYONE ARRIVED, PT'S HR AT 120s, WAS AT 70-80s DURING THE DAY, AND OXYGENATION LOWER TO 90s, PEEP REMAINS AT 14, FIO2 70 WAS GIVEN ORDERS BY MD TO START TAPERING OFF OF PROPOFOL, WAS BROUGHT DOWN TO 20 AT ONE POINT BUT PT DID NOT TOLERATE, SO BACK ON TO 30. MD NOTIFIED. RN CONTINUING TO MONITOR AT THIS TIME.
[2021-05-12] VITALS (85 sets, daily range): BP systolic 90–153; BP diastolic 46–96
[2021-05-12 03:31] LABS: HEMATOCRIT 30.6 % (37.0-47.0); HEMOGLOBIN 10.2 gm/dL (12.0-15.0); MCH 33.7 pg (26.0-34.0); MCHC 33.4 g/dL (28.0-37.0); RBC 3.03 mil/uL (4.20-5.00); RDW 14.2 % (10.5-14.5)
[2021-05-12 04:55] LABS: ANION GAP < 0 mmol/L (7-16); BUN 23 mg/dL (7-18); CALCIUM 8.1 mg/dL (8.5-10.1); CHLORIDE 102 mmol/L (98-107); CO2 41 mmol/L (21-32); CREATININE 0.5 mg/dL (0.6-1.0); GLUCOSE 108 mg/dL (74-106); POTASSIUM 4.8 mmol/L (3.5-5.1); SODIUM 142 mmol/L (136-145)
--- NOTE | 2021-05-12 05:39 | NUR ---
PT TOLERATES TURNS AND ORAL CARES, DOES NOT APPEAR TO ROUSE, BUT HR INCREASES WITH NURSING CARES. DESAT DOWN TO 75% WHEN LYING FLAT, RECOVERS WELL. TOLERATING TUBE FEEDING, HIGH VENT SETTINGS, SATS 90-97%.
--- NOTE | 2021-05-12 09:29 | NUR ---
ASSUME CARE OF PT AT 0700
[2021-05-13] VITALS (67 sets, daily range): BP systolic 99–165; BP diastolic 57–102
[2021-05-13 05:27] LABS: HEMATOCRIT 29.5 % (37.0-47.0); HEMOGLOBIN 10.1 gm/dL (12.0-15.0); MCH 34.7 pg (26.0-34.0); MCHC 34.4 g/dL (28.0-37.0); MCV 100.9 fL (80.0-100.0); RBC 2.92 mil/uL (4.20-5.00); RDW 14.2 % (10.5-14.5); WBC 9.1 thou/uL (4.0-11.0)
[2021-05-13 05:53] LABS: CALCIUM 8.4 mg/dL (8.5-10.1); CREATININE 0.5 mg/dL (0.6-1.0); POTASSIUM 4.8 mmol/L (3.5-5.1)
--- NOTE | 2021-05-13 09:48 | NUR ---
Cm tried calling daughter wellington flag r/t message she is needing letter for her moms work to assist with her utilize. # [phone] Unable to leave message r/t mail box is full. Will cont following as needed for dc needs.
--- NOTE | 2021-05-13 14:02 | NUR ---
1403HRS - PT'S DAUGHTER CALLED. WAS INFORMED AND UPDATED ON PT'S CONDITION. DAUGHTER REQUESTED TO VISIT. SHE WAS INFORMED OF HOSPITAL'S VISITATION POLICY AND SHE SHE UNDERSTANDS.
--- NOTE | 2021-05-13 15:30 | NUR ---
15OOHRS - PT PRONED
[2021-05-14] VITALS (41 sets, daily range): BP systolic 85–129; BP diastolic 51–82
--- NOTE | 2021-05-14 04:58 | NUR ---
PT SUPINE AT 0330, LARGE AMT BLOODY/THICK/YELLOW SECRETIONS AND NASAL DRAINAGE ON PILLOW AND BED. INCREASED FACIAL EDEMA. PT TOLERATED TURN WELL, TF RESTARTED.
[2021-05-14 05:55] LABS: HEMATOCRIT 31.3 % (37.0-47.0); HEMOGLOBIN 10.4 gm/dL (12.0-15.0); MCH 33.9 pg (26.0-34.0); MCHC 33.2 g/dL (28.0-37.0); MCV 101.9 fL (80.0-100.0); RBC 3.07 mil/uL (4.20-5.00); RDW 14.6 % (10.5-14.5); WBC 8.6 thou/uL (4.0-11.0)
[2021-05-14 06:14] LABS: CALCIUM 8.5 mg/dL (8.5-10.1); CREATININE 0.4 mg/dL (0.6-1.0); POTASSIUM 4.7 mmol/L (3.5-5.1)
--- NOTE | 2021-05-14 11:02 | NUR ---
Chart review, discussed during los with hospitalist and unite rounds with pulmonary. No anticipated dc. On vent, nutritional support. out of enhanced isolation. unite salon manager set up face time for daughter to face time with noel. Will cont. following as needed for dc needs.
[2021-05-14 18:02] LABS: BE(vivo) 18.7 mmol/L (-2 to +3); HCO3 47.3 mmol/L (22.0-26.0); PCO2 82.3 mmHg (35.0-45.0); PO2 66.6 mmHg (80.0-100.0); pH 7.377 (7.360-7.450); sO2 91.6 % (92.0-98.0)
--- NOTE | 2021-05-14 19:51 | NUR ---
PATIENT STABLE THROUGH OUT THIS SHIFT. FIO2 INCREASED TO 100% WHEN PRONED. PRONED PATIENT AROUND 1630. GOOD URINE OUTPUT. LEWIS PATENT. SMALL SMEAR FOR BM. TOLERATING TUBE FEEDS. TREATED HYPOGLYCEMIA X1 PER PROTOCOL. SEDATED ON PROPOFOL, VERSED, FENTANYL FOR VENT MANAGEMENT. BLOOD TINGED ORAL SECRETIONS, DR. COLMENARES AWARE. COMMUNICATED ABG RESULTS TO DEDRA. UPDATED FAMILY ON PATIENT STATUS.
[2021-05-15] VITALS (39 sets, daily range): BP systolic 87–131; BP diastolic 57–77
[2021-05-15 04:54] LABS: HEMATOCRIT 29.4 % (37.0-47.0); HEMOGLOBIN 9.8 gm/dL (12.0-15.0); MCH 33.9 pg (26.0-34.0); MCHC 33.2 g/dL (28.0-37.0); RBC 2.88 mil/uL (4.20-5.00); RDW 14.6 % (10.5-14.5); WBC 6.6 thou/uL (4.0-11.0)
--- NOTE | 2021-05-15 05:07 | NUR ---
PT TOLERATED SUPINE WELL SATS REMAINED >95%. FACE EXTREMELY SWOLLEN, NOTED BLISTERS ON NECK, EYELID, FACE. VENT SETTINGS UNCHANGED
[2021-05-15 05:08] LABS: CALCIUM 8.4 mg/dL (8.5-10.1); CREATININE 0.4 mg/dL (0.6-1.0); POTASSIUM 4.3 mmol/L (3.5-5.1)
[2021-05-15 15:36] LABS: BE(vivo) 11.6 mmol/L (-2 to +3); PCO2 77.3 mmHg (35.0-45.0); PO2 115.6 mmHg (80.0-100.0); pH 7.332 (7.360-7.450); sO2 97.7 % (92.0-98.0)
--- NOTE | 2021-05-15 19:37 | NUR ---
PATIENT REMAINS INTUBATED/SEDATED ON VENT WITH HIGH SUPPORT. ORDERS TO NOT PRONE TODAY DUE TO ORAL BLEEDING AND TONGUE SWELLING. PATIENT WITH PERSISTENT HYPOGLYCEMIA. ORDERS TO START D20 AT 50 ML/HR. LEWIS PATENT. GOOD URINE OUTPUT. AFEBIRLE, VSS. TUBE FEEDING TOLERATING. SPOKE WITH DAUGHTER AND FATHER TODAY. INFORMED THAT PATIENT IS OUT OF COVID ISOLATION AND THEY CAN VISIT. AWARE OF VISITING POLICY.
[2021-05-16] VITALS (25 sets, daily range): BP systolic 102–139; BP diastolic 59–88
[2021-05-16 05:11] LABS: HEMATOCRIT 29.3 % (37.0-47.0); HEMOGLOBIN 9.9 gm/dL (12.0-15.0); MCHC 33.6 g/dL (28.0-37.0); MCV 101.3 fL (80.0-100.0); RBC 2.89 mil/uL (4.20-5.00); RDW 14.4 % (10.5-14.5); WBC 5.7 thou/uL (4.0-11.0)
[2021-05-16 05:57] LABS: CALCIUM 8.1 mg/dL (8.5-10.1); CREATININE 0.4 mg/dL (0.6-1.0); POTASSIUM 3.9 mmol/L (3.5-5.1)
--- NOTE | 2021-05-16 06:36 | NUR ---
Assumed care 05/15 @ 1900. 2200 TF residuals 150 ml, contents replaced and rechecked at midnight. Residual still 100 ml, bowel sounds hypoactive. TF restarted at 0400 once residuals 50 ml, will monitor closely. Pt has tolerated FIO2 at 60%, but when laid flat for repositioning o2 sats dropped into 50s, VENT up to 100% and pt took about 30 minutes to recover. Propofol remains at 30 mcg/kg/min, Versed at mg/hr, Fentanyl at 100 mcg/hr for vent management. Pt arouses to painful stimuli, +cough/gag. Copious pink oral secretions, scant tracheal secretions. Bell to DD w/ adequate output. Pt moving slowly towards goals, no calls from family this shift. Will continue to monitor closely.
--- NOTE | 2021-05-16 11:43 | NUR ---
ASSUMED CARE OF PT AT 1200
--- NOTE | 2021-05-16 11:56 | NUR ---
REORT GIVEN TO DIXON HARLEY.
--- NOTE | 2021-05-16 12:13 | NUR ---
AT 1130 FOUND PT'S BG TO BE 61. CONTACTED DR ANTONIA TINEO INSTRUCTED TO INCREASE RATE OF D10 IVF TO 100MLS/HR AND GIVE STRESS DOSE OF HYDROCORTISONE IV. REPORT WAS GIVEN TO DIXON HARLEY WHO IS TAKING OVER CARE OF PATIENT.
--- NOTE | 2021-05-16 18:22 | NUR ---
PT REMAINED ON VENTILATOR AT CURRENT SETTINGS. CONTINUE WITH CURRENT PLAN OF CARE AND MEDICATIONS. PT MOVED TO ROOM 249 OUT OF COVID POD. WILL CONTINUE TO ASSESS.
[2021-05-17] VITALS (19 sets, daily range): BP systolic 99–146; BP diastolic 56–86
--- NOTE | 2021-05-17 00:20 | NUR ---
SEE Scutum FOR ASSESSMENT. PT INTUBATED/SEDATED ON VENT. HAD EPISODE OF HR UP IN 120'S, 02SAT 90 AFTER SUCTIONING. WENT UP ON SEDATION. PT BS NOW NORMALIZING IN 130'S. BP WNL. GOOD UO. CONT PLAN OF CARE
[2021-05-17 05:39] LABS: HEMATOCRIT 27.8 % (37.0-47.0); HEMOGLOBIN 9.2 gm/dL (12.0-15.0); MCHC 33.3 g/dL (28.0-37.0); RBC 2.72 mil/uL (4.20-5.00); WBC 4.5 thou/uL (4.0-11.0)
[2021-05-17 05:45] LABS: ANION GAP < 0 mmol/L (7-16); BUN 11 mg/dL (7-18); CALCIUM 8.5 mg/dL (8.5-10.1); CHLORIDE 100 mmol/L (98-107); CO2 43 mmol/L (21-32); CREATININE 0.4 mg/dL (0.6-1.0); GLUCOSE 196 mg/dL (74-106); POTASSIUM 3.2 mmol/L (3.5-5.1); SODIUM 140 mmol/L (136-145)
--- NOTE | 2021-05-17 11:35 | NUR ---
Nutrition: Vital AF formula on backorder. REC change formula to Osmolite 1.5 at 40 mL/hr when formula runs out. Continue water flushes and beneprotein powder.
--- NOTE | 2021-05-17 13:25 | NUR ---
Chart review, discussed during am unite rounds and LOS. Vent, nutritional support. Out of isolation r/t COVID. Cm left letter for patient work with both daughter's name on letter for possible assist with Madeline pills. Will cont. followings needed for dc needs. Cm spoke with daughter wellington via phone call, no concerns or questions voiced.
[2021-05-18] VITALS (28 sets, daily range): BP systolic 93–124; BP diastolic 55–75
--- NOTE | 2021-05-18 18:10 | NUR ---
NO SIGNIFICANT EVENTS TODAY WITH MAKING PROGRESS IN PLAN OF CARE. PATIENT CONTINUES ON PEEP OF 14 AND FIO2 AMOUNTS OF 70-80% DURING THE DAY ON VENTILATOR. PATIENT TOLERATING TUBE FEEDINGS. FAMILY SISTER CAME TO VISIT PATIENT TODAY. DR DONNELLY SPOKE TO FAMILY IN ROOM ABOUT PLAN OF CARE AND PATIENT STATUS. ADEQUATE URINE OUPUT. CONTINUES ON PROPOFOL, FENTANYL AND VERSED FOR SEDATION. AFEBRILE.
--- NOTE | 2021-05-18 23:17 | NUR ---
PT NONVERBAL. PT REMAINS SEDATED ON PROPOFOL, FENTANYL , AND VERSED GTTS. TITRATING NEEDED. LUNGS COARSE CLEARS WITH SUCTON. SMALL AMTS ACEVEDO SPUTUM NOTED WITH SUCTIONING. SMALL AMTS BLOOD TINGED ORAL SPUTUM NOTED. GASTRIC RESIDUALS WNL. TF INFUSING WITHOUT DIFFICULTY. 1 TYLENOL FOR FACIAL GRIMACING NOTED WHILE CHANGING POSITION. WILL CONTINUE TO MONITOR PT FOR CHANGES.
[2021-05-19] VITALS (25 sets, daily range): BP systolic 90–118; BP diastolic 48–75
--- NOTE | 2021-05-19 01:09 | NUR ---
PT RESTING QUIETLY. RT TX PER RT.
--- NOTE | 2021-05-19 07:20 | NUR ---
PT PROGRESSING SLOWLY TOWARDS D/C GOALS VSS. HRR [id number]. BP MOD LOW 90-110S AFEBRILE THIS AM. NO S/S PAIN THIS AM. NO SKIN BREAKDOWN NOTED DURING BATH. INC STOOL. MOISTURE BARRIER APPLIED. SATS WNL MOST OF NIGHT EXCEPT WITH TURNING OR BATH SHE DESATTED TO 80S THEN BACK UP TO WNL.
[2021-05-19 07:54] LABS: HEMATOCRIT 28.2 % (37.0-47.0); HEMOGLOBIN 9.7 gm/dL (12.0-15.0); MCH 35.1 pg (26.0-34.0); MCHC 34.3 g/dL (28.0-37.0); MCV 102.5 fL (80.0-100.0); PLATELET COUNT 97 thou/uL (150-400); RBC 2.75 mil/uL (4.20-5.00); RDW 15.8 % (10.5-14.5); WBC 6.5 thou/uL (4.0-11.0)
[2021-05-19 08:04] LABS: BE(vivo) 18.2 mmol/L (-2 to +3); HCO3 47.2 mmol/L (22.0-26.0); PO2 64.3 mmHg (80.0-100.0); pH 7.356 (7.360-7.450); sO2 90.2 % (92.0-98.0)
[2021-05-19 08:06] LABS: PCO2 86.3 mmHg (35.0-45.0)
[2021-05-19 08:09] LABS: ALBUMIN 2.2 g/dL (3.4-5.0); CALCIUM 8.2 mg/dL (8.5-10.1); CREATININE 0.5 mg/dL (0.6-1.0); POTASSIUM 3.3 mmol/L (3.5-5.1); TOTAL BILIRUBIN 0.5 mg/dL (0.2-1.0); TOTAL PROTEIN 5.7 g/dL (6.4-8.2)
[2021-05-19 11:20] LABS: ABSOLUTE NEUTROPHILS 4.6 thou/uL (1.4-8.2)
[2021-05-19 11:21] LABS: ANISOCYTOSIS 1+
--- NOTE | 2021-05-19 14:38 | NUR ---
Patients family clarified visitor restriction list. Only family members allowed per Laurel Melgar, are herself, her sister Francesca Davis and Rishi Sorto. Lea visited the patients bedside @0100, all questions regarding care answered. In addition, pts belongings (cell phone and Ipad) were taken by Lea at this time. Notified Charge Nurse as well. Charge nurse also spoke the patients daughter regarding her mothers condition. @ 1420, returned a phone call to Francesca and updated her on her mothers condition. No significant events
[2021-05-20] VITALS (21 sets, daily range): BP systolic 91–146; BP diastolic 42–97
--- NOTE | 2021-05-20 06:46 | NUR ---
Patient stable through the night. Proned at shift change. Patient did drop oxygen so FIO2 increased to 100% and titrated back to 90% Tolerated prone position well. tolerating tube feeds. Having bowel movements. No am labs ordered. NO family called. See documentation on interventions for assessment details. Patient is trying to progress towards goals.
--- NOTE | 2021-05-20 09:22 | NUR ---
ASSUMED CARE OF PT AT 0700 PT'S DAUGHTER RADHA AT BEDSIDE AT 0900 AND I UPDATED HER PER POC AND SHE REITERATED THAT ONLY THE SIBLINGS ARE TO BE ALLOWED IN TO VISIT.
[2021-05-21] VITALS (29 sets, daily range): BP systolic 96–135; BP diastolic 49–88
--- NOTE | 2021-05-21 09:00 | NUR ---
ASSUMMED CARE OF THIS PATIENT AT 0700 FROM THE NIGHT KAMILAH AGUILAR RN. O2 SAT DROPPING INTO THE UPPER 80'S WITH O2 AT 90%. FIO2 INCREASED TO 100%. WILL CONTINUE TO MONITOR.
--- NOTE | 2021-05-21 11:15 | NUR ---
PATIENT'S DAUGHTERS, ODYSSEY AND CON IN TO VISIT THEIR MOTHER. QUESTIONS ADDRESSED AND REASSURANCE GIVEN.
--- NOTE | 2021-05-21 11:49 | NUR ---
Discussed during am rounds and los with hospitalist. Vent 100%, peep 14, nutritional support. no visitor other than her daughter wellington or odyssey. New order for palliative consult. SILVERER here to visit with daughters at bedside. No anticipated dc over the weekend, will cont. following as needed.
--- NOTE | 2021-05-21 13:24 | NUR ---
PATIENT IS NOT PROGRESSING TOWARDS OUTCOME GOALS AND O2 DEMANDS HAVE INCREASED. PALLATIVE CARE CONSULTED. TEACHER OF GIFTED STUDENTS Yunior JOE IN TO SPEAK WITH THE PATIENT'S DAUGHTERS, ODYSSEY AND CON. CONERNING PLAN OF CARE. WILL CONTINUE TO MONITOR.
[2021-05-22] VITALS (23 sets, daily range): BP systolic 95–111; BP diastolic 53–78
--- NOTE | 2021-05-22 10:58 | NUR ---
0830- IN.--VW 0900-SP C&S SENT. SPUTUM VERY THICK,LAVAGED W SM AMT NS. COLOR & CONSISTENCY LIKE CREAM OF MUSHROOM SOUP.PT DID NOT ROGELIO WELL. SATS DOWN TO ~77% & RECOVERY SLOW.--VW 1030-DTR ODYSSEY CALLED TO CK IN ON PT. STATES SHE & HER SISTER HAVE BEEN CALLING-REVERSE CODE GIVEN (1ST 4 #'S OF ACCT INSTEAD OF LAST 4) THAT SOMEONE INSTITUTED.STATES HER BROTHER DELROY WILL NOT BE CALLING BUT WILL BE W HER & HER SISTER WHEN THEY VISIT.IS AWARE OF GRAVE SITUATION & PT NOT MAINTAINING HER O2 SATS.--VW
[2021-05-23] VITALS (16 sets, daily range): BP systolic 94–127; BP diastolic 53–80
[2021-05-23 06:07] LABS: HEMOGLOBIN 8.9 gm/dL (12.0-15.0); MCH 33.9 pg (26.0-34.0); MCV 102.8 fL (80.0-100.0); RBC 2.63 mil/uL (4.20-5.00); RDW 16.1 % (10.5-14.5); WBC 6.6 thou/uL (4.0-11.0)
[2021-05-23 06:34] LABS: BUN 14 mg/dL (7-18); CALCIUM 8.7 mg/dL (8.5-10.1); CHLORIDE 95 mmol/L (98-107); CREATININE 0.5 mg/dL (0.6-1.0); GLUCOSE 123 mg/dL (74-106); MAGNESIUM 2.1 mg/dL (1.8-2.4); SODIUM 140 mmol/L (136-145)
[2021-05-23 06:38] LABS: CO2 > 45 mmol/L (21-32)
--- NOTE | 2021-05-23 08:00 | NUR ---
assumed care after report and pt continues to desat. Rt called and pt bagged All sedation onbaord and if anything runs out the patient desats. No changes in her Heart rate nor blood pressure.Call to Dr Astudillo Will cont. to monitor. Not profgressing toward any goals at this time.
--- NOTE | 2021-05-23 10:00 | NUR ---
Daugthers here to see patients and get update. Daugther at the bedside and praying for their mother. emotional support given. Update given that there are no changes. Daugthers aware that their mother is not doing well that she keeps desating. Rt has been here for most of the morning. Will cont to monitor.
[2021-05-23 10:41] LABS: BE(vivo) 19.8 mmol/L (-2 to +3); HCO3 48.7 mmol/L (22.0-26.0); pH 7.369 (7.360-7.450)
[2021-05-23 10:42] LABS: PCO2 86.3 mmHg (35.0-45.0); PO2 45.5 mmHg (80.0-100.0)
--- NOTE | 2021-05-23 11:30 | NUR ---
PCXR AND ABG'S DONE.
[2021-05-23 13:09] LABS: HEMOGLOBIN 9.2 gm/dL (12.0-15.0); MCH 33.5 pg (26.0-34.0); MCHC 32.7 g/dL (28.0-37.0); MCV 102.4 fL (80.0-100.0); PLATELET COUNT 152 thou/uL (150-400); RBC 2.73 mil/uL (4.20-5.00); RDW 15.9 % (10.5-14.5); WBC 6.6 thou/uL (4.0-11.0)
[2021-05-23 13:53] LABS: ABSOLUTE NEUTROPHILS 5.3 thou/uL (1.4-8.2); ANISOCYTOSIS 1+; METAMYELOCYTES 2 %; MYELOCYTES 1 %; NUCLEATED RBCS 1 /100WBC
--- NOTE | 2021-05-23 14:00 | NUR ---
nO CHANGES NOTED TO HER ASSESSMENT. dR Hughes MADE CHANGES TO THE PEEP. eXTRA DOSE OF LASIX TODAY AND LABS DRAWN.
--- NOTE | 2021-05-23 14:00 | NUR ---
PT HAS HAD SEVERAL EPISODES OF DESATING TODAY LOW 52 IT TAKES HER AWHILE TO COME BACK UP BUT SHE DOES GET THERE. HOB UP AND PT STABLE AT THIS TIME.
--- NOTE | 2021-05-23 15:30 | NUR ---
REPORT TO ONCOMING RN.
[2021-05-24] VITALS (17 sets, daily range): BP systolic 100–124; BP diastolic 60–86
--- NOTE | 2021-05-24 16:31 | NUR ---
Chart Review, discussed during los with hospitalist and unit rounds with pulmonary MD. Vent, desaturation with movement in bed and bedside cares. Out of isolation for COVID, MRSA + sputum.
[2021-05-24 16:53] LABS: BUN 16 mg/dL (7-18); CALCIUM 8.6 mg/dL (8.5-10.1); CHLORIDE 96 mmol/L (98-107); CREATININE 0.5 mg/dL (0.6-1.0); GLUCOSE 118 mg/dL (74-106); POTASSIUM 4.6 mmol/L (3.5-5.1); SODIUM 137 mmol/L (136-145)
[2021-05-24 17:20] LABS: CO2 > 45 mmol/L (21-32)
--- NOTE | 2021-05-24 18:26 | NUR ---
PT INTUBATED AND SEDATED WITH PROPOFOL, VERSED, AND FENTANYL. PT DESATED ONCE TODAY AFTER RT SUCTIONED. DROPPED TO 77% BUT CAME BACK UP QUICKLY. PT HR WAS 100-120 SINUS TACH. PATIENT DAUGHTER JUANITA VISITED. WILL CONTINUE TO MONITOR.
[2021-05-25] VITALS (25 sets, daily range): BP systolic 100–116; BP diastolic 57–83
--- NOTE | 2021-05-25 04:09 | NUR ---
ASSUMED CARE OF PATIENT AT 1900. PATIENT REMAINS TACHYCARDIC, FEBRILE WITH TEMP UP TO 99.1 AXILLARY. SUCTION AND MOUTH CARE DONE TOLERATED. COMPLETE BATH GIVEN, DID DESAT TO MID 70'S WHEN TURNED TO CLEAN BACKSIDE. RECOVERED SLOWLY. ALL SEDATION REMAINS THE SAME. NOT PROGRESSING TOWARDS POC GOALS. URINE OUTPUT ALSO LOWER THAN PREVIOUS SHIFTS, AND GASTRIC RESIDUALS HIGHER THAN PREVIOUS SHIFTS.
[2021-05-25 04:20] LABS: BASOPHILS 0.8 % (0.0-2.0); EOSINOPHILS 4.1 % (0.0-3.0); HEMATOCRIT 27.8 % (37.0-47.0); HEMOGLOBIN 9.1 gm/dL (12.0-15.0); LYMPHOCYTES 16.3 % (24.0-44.0); MCH 34.1 pg (26.0-34.0); MCHC 32.9 g/dL (28.0-37.0); MCV 103.5 fL (80.0-100.0); MONOCYTES 10.6 % (1.0-8.0); PLATELET COUNT 191 thou/uL (150-400); POLYS 68.2 % (36.0-66.0); RBC 2.68 mil/uL (4.20-5.00); RDW 16.2 % (10.5-14.5); WBC 7.3 thou/uL (4.0-11.0)
[2021-05-25 05:35] LABS: BUN 13 mg/dL (7-18); CALCIUM 8.7 mg/dL (8.5-10.1); CHLORIDE 96 mmol/L (98-107); CREATININE 0.4 mg/dL (0.6-1.0); GLUCOSE 94 mg/dL (74-106); POTASSIUM 4.4 mmol/L (3.5-5.1); SODIUM 140 mmol/L (136-145)
[2021-05-25 05:49] LABS: CO2 > 45 mmol/L (21-32)
--- NOTE | 2021-05-25 15:18 | NUR ---
0700-ASSUMED CARE OF PT.--VW 1515-CALL TO VIA OFFICE W UPDATE.--VW 1520-KRYPTO TEXT TO W UPDATE.--VW
[2021-05-26] VITALS (24 sets, daily range): BP systolic 97–126; BP diastolic 57–78
[2021-05-26 04:07] LABS: HEMOGLOBIN 9.1 gm/dL (12.0-15.0)
[2021-05-26 04:08] LABS: HEMATOCRIT 27.8 % (37.0-47.0); MCH 33.8 pg (26.0-34.0); MCHC 32.8 g/dL (28.0-37.0); RBC 2.7 mil/uL (4.20-5.00); RDW 15.9 % (10.5-14.5); WBC 8.6 thou/uL (4.0-11.0)
[2021-05-26 04:15] LABS: BUN 15 mg/dL (7-18); CALCIUM 8.7 mg/dL (8.5-10.1); CHLORIDE 98 mmol/L (98-107); CREATININE 0.4 mg/dL (0.6-1.0); GLUCOSE 120 mg/dL (74-106); SODIUM 142 mmol/L (136-145)
[2021-05-26 04:17] LABS: CO2 > 45 mmol/L (21-32); POTASSIUM 5.2 mmol/L (3.5-5.1)
--- NOTE | 2021-05-26 06:25 | NUR ---
Pt's spokesperson, Francesca, updated on progress last night. No changes in sedation/vent settings. Pt has maintained O2 sat if she is not repositioned. No BM this shift. Afebrile. UOP less than previous shifts. Tolerating tube feedings. Not progressing towards goals.
[2021-05-26 12:40] LABS: BE(vivo) 28.4 mmol/L (-2 to +3); HCO3 61.4 mmol/L (22.0-26.0); sO2 79.1 % (92.0-98.0)
[2021-05-26 12:42] LABS: PCO2 129.5 mmHg (35.0-45.0); PO2 52.9 mmHg (80.0-100.0); pH 7.294 (7.360-7.450)
--- NOTE | 2021-05-26 13:26 | NUR ---
ASSUMED CARE OF PATIENT AT 0600. VENTILATOR SETTINGS 24/400/.100 +16. CALLED TO THE POD DUE TO DESATURATION. I TERRIE AND ABG AND THE FOLLOWING VALUES: 7.29/129/53/61 +28 79%. RESULTS WERE CALLED TO DR COLMENARES. HE STATED THERE WERE NO FURTHER SETTING CHANGES TO BE MADE AT THIS TIME. HE WAS GOING TO CALL AND TALK TO FAMILY.
[2021-05-26 13:31] LABS: CALCIUM 8.8 mg/dL (8.5-10.1); MAGNESIUM 1.9 mg/dL (1.8-2.4)
--- NOTE | 2021-05-26 15:55 | EKG ---
[address] [place] [address] ELECTROCARDIOGRAM REPORT Name: NAKITA LUNSFORD Room #: 249- ADM IN M.R.#: [id number] Admission: 04/23/21 Attend Phys: Lina Willams MD Discharge: Date of : 65 Report #: [id number] [facility] Test Date: 2021-05-26 Test Time: 12:07:51 Pat Name: NAKITA LUNSFORD Department: Room: 249 Gender: F Drop Machine Operator: misbah : [id number] Requested By: Anish Hernández Order Number: [id number] MD: Brandon Sloan Measurements Intervals Council Rate: 135 P: 67 WY: 123 QRS: -14 QRSD: 90 T: -32 QT: 275 QTc: 413 Interpretive Statements Sinus tachycardia Low voltage, precordial leads RSR' in V1 or V2, right VCD or RVH Compared to ECG 04/23/2021 07:25:27 Low QRS voltage now present Right ventricular hypertrophy now present Sinus rhythm no longer present Myocardial infarct finding no longer present Electronically Signed On 05-26-2021 15:55:02 CDT by Brandon Sloan [email or web address] <ELECTRONICALLY SIGNED> By: Brandon Sloan MD, [facility] 05/26/21 1555 1207 1207 Brandon Sloan MD, [facility] /EPI
[2021-05-26 23:24] LABS: BE(vivo) 23.1 mmol/L (-2 to +3); HCO3 52.8 mmol/L (22.0-26.0); PCO2 98.8 mmHg (35.0-45.0); PO2 64.3 mmHg (80.0-100.0); pH 7.346 (7.360-7.450); sO2 89.5 % (92.0-98.0)
[2021-05-27] VITALS (24 sets, daily range): BP systolic 104–123; BP diastolic 65–76
--- NOTE | 2021-05-27 06:04 | NUR ---
Patient stable overnight. No changes. No family called. See documentation on interventions for assessment details. Patient is not progressing towards goals.
[2021-05-28] VITALS (25 sets, daily range): BP systolic 53–122; BP diastolic 24–72
--- NOTE | 2021-05-28 00:09 | NUR ---
REPORT RECEIVED FROM CHERRI CARL. ALL LINES AND DRIPS ASSESSED BY BOTH RN'S. PT ASSESSED PER ICU PROTOCOL.
[2021-05-28 05:28] LABS: HEMATOCRIT 27.2 % (37.0-47.0); HEMOGLOBIN 8.7 gm/dL (12.0-15.0); MCH 33.1 pg (26.0-34.0); MCHC 31.9 g/dL (28.0-37.0); MCV 103.9 fL (80.0-100.0); RBC 2.62 mil/uL (4.20-5.00); RDW 15.5 % (10.5-14.5); WBC 12.3 thou/uL (4.0-11.0)
[2021-05-28 05:40] LABS: ANION GAP < 0 mmol/L (7-16); BUN 21 mg/dL (7-18); CALCIUM 8.4 mg/dL (8.5-10.1); CHLORIDE 90 mmol/L (98-107); CO2 44 mmol/L (21-32); CREATININE 0.5 mg/dL (0.6-1.0); GLUCOSE 128 mg/dL (74-106); POTASSIUM 5.1 mmol/L (3.5-5.1); SODIUM 133 mmol/L (136-145)
--- NOTE | 2021-05-28 09:34 | NUR ---
NOTIFIED DR COLMENARES CONCERNING PT STATUS DESATTING TO 71% OVER ONE HOUR. NO NEW ORDERS GIVEN. WILL CONTINUE TO MONITOR.
--- NOTE | 2021-05-28 09:58 | NUR ---
THIS RN NOTIFIES THE POINT OF CONTACT THAT THE PT. IS NOT MAINTAINING ADEQUATE OXYGEN AND THAT SHE IS NOT STABLE.
--- NOTE | 2021-05-28 10:59 | NUR ---
HOSPITALIST CAME TO THE BEDSIDE TO EXPLAIN TO THE DAUGHTER THE STATUS OF THIS PT.
--- NOTE | 2021-05-28 14:22 | NUR ---
CODE called, cm notified tiffany paris # [phone] via phone call. Both daughters are about 20min away and wanted spiritual care called. Unit sec called spiritual care to come. Will cont following as needed for support pt and family. Hospitalist spoke with tiffany norman via phone call, daughters still want tx.
--- NOTE | 2021-05-28 16:47 | NUR ---
AT 1345 PT HAD A RHYTHM CHANGE, HYPOTENSION, AND HYPOXIA. DR COLMENARES NOTIFIED AT 1346 AND LEVOPHED INITIATED AT 1350. PT DID GABBI DOWN AND WENT INTO PEA AT 1415. THE TEAM IN THE ICU STARTED CPR WITH PHARMACY, RT, DR. SWANN, AND THIS RN AT THE BEDSIDE. THE PT. WENT IN AND OUT OF PEA AND VFIB/VTACH ARREST. SHE IS SHOCKED 3 TIMES FOR VFIB AND PULSELESS VT ARREST AND ASYSTOLE RHYTHM. THE PT PER DR. COLMENARES AT 1450 THIS CODE BLUE INTERVENTION WAS COMPLETE AFTER 35 MINUTES OF BLS/ACLS PROTOCOL. SEE CODE BLUE SHEET. FAMILY AT BEDSIDE. MTN NOTFIED.
== END 2021-05-28 14:50 | DRG 870 ==
LOC: ER 06:40 → 3W 08:50 → EROBS 08:50 → ICU 08:50 → 3W 08:50 → ICU 05-01 02:21
PROVIDERS: Emergency Medicine; Hospitalist; Internal Medicine; Internal Medicine Pulmonary Disease; Nurse Practitioner; Nurse Practitioner Family; Pediatrics; Specialist; ADMIT Internal Medicine; ATTEND Internal Medicine
PROC: 5A0935A Assistance with Respiratory Ventilation, Less than 24 Consecutive Hours, High Flow/Velocity Cannula (ICD-10-PCS; 2021-04-23)
PROC: XW033H5 Introduction of Tocilizumab into Peripheral Vein, Percutaneous Approach, New Technology Group 5 (ICD-10-PCS; 2021-04-23)
PROC: XW033E5 Introduction of Remdesivir Anti-infective into Peripheral Vein, Percutaneous Approach, New Technology Group 5 (ICD-10-PCS; 2021-04-23)
PROC: 5A0935A Assistance with Respiratory Ventilation, Less than 24 Consecutive Hours, High Flow/Velocity Cannula (ICD-10-PCS; 2021-04-24)
PROC: 5A09357 Assistance with Respiratory Ventilation, Less than 24 Consecutive Hours, Continuous Positive Airway Pressure (ICD-10-PCS; 2021-04-25)
PROC: 5A09357 Assistance with Respiratory Ventilation, Less than 24 Consecutive Hours, Continuous Positive Airway Pressure (ICD-10-PCS; 2021-04-26)
PROC: 5A09357 Assistance with Respiratory Ventilation, Less than 24 Consecutive Hours, Continuous Positive Airway Pressure (ICD-10-PCS; 2021-04-27)
PROC: 5A0935A Assistance with Respiratory Ventilation, Less than 24 Consecutive Hours, High Flow/Velocity Cannula (ICD-10-PCS; 2021-04-27)
PROC: 5A09357 Assistance with Respiratory Ventilation, Less than 24 Consecutive Hours, Continuous Positive Airway Pressure (ICD-10-PCS; 2021-04-28)
PROC: 5A0935A Assistance with Respiratory Ventilation, Less than 24 Consecutive Hours, High Flow/Velocity Cannula (ICD-10-PCS; 2021-04-29)
PROC: 5A09357 Assistance with Respiratory Ventilation, Less than 24 Consecutive Hours, Continuous Positive Airway Pressure (ICD-10-PCS; 2021-04-29)
PROC: 5A09357 Assistance with Respiratory Ventilation, Less than 24 Consecutive Hours, Continuous Positive Airway Pressure (ICD-10-PCS; 2021-04-30)
PROC: 0BH17EZ Insertion of Endotracheal Airway into Trachea, Via Natural or Artificial Opening (ICD-10-PCS; 2021-05-01)
PROC: 5A1955Z Respiratory Ventilation, Greater than 96 Consecutive Hours (ICD-10-PCS; 2021-05-01)
PROC: 02HV33Z Insertion of Infusion Device into Superior Vena Cava, Percutaneous Approach (ICD-10-PCS; 2021-05-01)
PROC: 0B21XEZ Change Endotracheal Airway in Trachea, External Approach (ICD-10-PCS; principal; 2021-05-26)
PROC: 5A12012 Performance of Cardiac Output, Single, Manual (ICD-10-PCS; 2021-05-28)
DX: A41.9 Sepsis, unspecified organism (principal); U07.1 COVID-19; J12.82 Pneumonia due to coronavirus disease 2019; J80 Acute respiratory distress syndrome; R65.21 Severe sepsis with septic shock; G92 Toxic encephalopathy; Z68.41 Body mass index [BMI] 40.0-44.9, adult; E78.00 Pure hypercholesterolemia, unspecified; I10 Essential (primary) hypertension; K21.9 Gastro-esophageal reflux disease without esophagitis; J45.909 Unspecified asthma, uncomplicated; F32.9 Major depressive disorder, single episode, unspecified; F41.9 Anxiety disorder, unspecified; G62.9 Polyneuropathy, unspecified; E87.6 Hypokalemia; E66.01 Morbid (severe) obesity due to excess calories; R73.9 Hyperglycemia, unspecified; D69.6 Thrombocytopenia, unspecified; K75.9 Inflammatory liver disease, unspecified; T38.0X5A Adverse effect of glucocorticoids and synthetic analogues, initial encounter; Y92.89 Other specified places as the place of occurrence of the external cause; Z66 Do not resuscitate; Z88.0 Allergy status to penicillin; Z88.2 Allergy status to sulfonamides; Z88.8 Allergy status to other drugs, medicaments and biological substances; Z51.5 Encounter for palliative care
CPT/HCPCS: 10078; 10879; 27000; 50455